=== PATIENT | female | born 1975 | race Two or more races ===

== ENCOUNTER 2017-08-23 11:18 | Inpatient (IN) | payer BC, OTHER ==
[2017-08-23 11:26] VITALS: BMI 26.2
[2017-08-23] MEDS ORDERED: ACETAMINOPHEN 1000 MG/100 ML VIAL (NON FORMULARY) IVPB ONE (12:09)
[2017-08-23] MEDS ORDERED: SODIUM CHLORIDE 1,000 ML IV STA (12:09)
[2017-08-23] MEDS ORDERED: ALBUTEROL SO4 2.5/IPRATROPIUM 0.5 INH SOL 3 ML VIAL.NEB. NEB ONE (12:09)
--- NOTE | 2017-08-23 12:12 | PDOC ---
History of Present Illness <Susan Loweian - Last Filed: 08/23/17 18:39> - History of Present Illness Initial Comments: 08/23/17 12:06 42 F with no PMH presents to ED with 1 week of fevers, cough, and abdominal pain. Pt states that she had a tummy tuck in [place] 3 months ago. She had been doing well until last Tuesday, when she developed abdominal pain and fever. Pt also reports a nonproductive cough that developed simultaneously. Pt states that she went to her PMD, who prescribed doxycycline, which she has been taking for about 6 days now. Pt reports initial improvement in her symptoms after starting doxy. However, yesterday, pt states her fevers returned with Tmax 102. She states her cough and abdominal pain also returned. Pt reports pain in the middle of her abdomen. She denies any drainage from the surgical wounds, which have healed well. Pt also complains of pleuritic chest pain and SOB 2/2 cough. Denies any leg swelling or calf pain. <Justino Stevenson - Last Filed: 08/23/17 19:11> - General Chief Complaint: Respiratory Stated Complaint: CHEST PAIN Time Seen by Provider: 08/23/17 11:32 Past History <Susan Loweian - Last Filed: 08/23/17 18:39> - Past Medical History COPD: No - Suicide/Smoking/Psychosocial Hx Smoking History: Never smoked <GrahamJustino - Last Filed: 08/23/17 19:11> - Past Medical History Allergies/Adverse Reactions: Allergies Allergy/AdvReac Type Severity Reaction Status Date / Time No Known Allergies Allergy Verified 08/23/17 13:40 Review of Systems - Review of Systems Comments:: 08/23/17 12:09 "GENERAL/CONSTITUTIONAL: + fever and chills. No weakness. HEAD, EYES, EARS, NOSE AND THROAT: No change in vision. No ear pain or discharge. No sore throat. CARDIOVASCULAR: + chest pain and shortness of breath. RESPIRATORY: + cough, no wheezing, or hemoptysis. GASTROINTESTINAL: + abdominal pain, No nausea, vomiting, diarrhea or constipation. GENITOURINARY: No dysuria, frequency, or change in urination. MUSCULOSKELETAL: No joint or muscle swelling or pain. No neck or back pain. SKIN: No rash NEUROLOGIC: No headache, vertigo, loss of consciousness, or change in strength/ sensation. ENDOCRINE: No increased thirst. No abnormal weight change. HEMATOLOGIC/LYMPHATIC: No anemia, easy bleeding, or history of blood clots. ALLERGIC/IMMUNOLOGIC: No hives or skin allergy. " <Justino Stevenson - Last Filed: 08/23/17 19:11> *Physical Exam - Vital Signs Last Vital Signs Temp Pulse Resp BP Pulse Ox 99.5 F 110 H 20 123/68 100 08/23/17 11:23 08/23/17 11:23 08/23/17 11:23 08/23/17 11:23 08/23/17 11:23 <Beni Lowe - Last Filed: 08/23/17 18:39> - Vital Signs Last Vital Signs Temp Pulse Resp BP Pulse Ox 99.5 F 110 H 20 123/68 100 08/23/17 11:23 08/23/17 11:23 08/23/17 11:23 08/23/17 11:23 08/23/17 11:23 - Physical Exam Comments: 08/23/17 12:12 "GENERAL: Awake, alert, and fully oriented, in no acute distress. HEAD: No signs of trauma EYES: PERRLA, EOMI, sclera anicteric, conjunctiva clear ENT: Auricles normal inspection, hearing grossly normal, nares patent, oropharynx clear without exudates. Moist mucosa NECK: Nontender, no stepoffs, Normal ROM, supple, no lymphadenopathy, JVD, or masses LUNGS: +Slightly prolonged expiratory phase, Breath sounds equal, clear to auscultation bilaterally. No wheezes, and no crackles HEART: Regular rate and rhythm, normal S1 and S2, no murmurs, rubs or gallops ABDOMEN: + tenderness periumbilical region with + induration, no fluctuance, no drainage from surgical incisions, No guarding, no rebound. No masses EXTREMITIES: Normal range of motion, no edema. No clubbing or cyanosis. No cords, erythema, or tenderness NEUROLOGICAL: Cranial nerves II through XII intact. 5/5 strength and sensation in all extremities, Normal speech, normal gait, normal cerebellar function SKIN: Warm, Dry, normal turgor, no rashes or lesions noted. " <Justino Stevenson - Last Filed: 08/23/17 19:11> ED Treatment Course - LABORATORY CBC & Chemistry Diagram: 08/23/17 12:53 08/23/17 12:53 - ADDITIONAL ORDERS Additional order review: Laboratory Results 08/23/17 08/23/17 08/23/17 13:18 13:18 12:53 D-Dimer Sodium Potassium Chloride Carbon Dioxide Anion Gap BUN Creatinine Creat Clearance w eGFR Random Glucose Lactic Acid Calcium Total Bilirubin AST ALT Alkaline Phosphatase Creatine Kinase Cancelled Troponin I Cancelled Total Protein Albumin Urine Color Yellow Urine Appearance Clear Urine pH 6.0 Ur Specific [place] 1.024 Urine Protein Negative Urine Glucose (UA) Negative Urine Ketones Negative Urine Blood 2+ H Urine Nitrite Negative Urine Bilirubin Negative Urine Urobilinogen Negative Ur Leukocyte Esterase Negative Urine WBC (Auto) 1 Urine RBC (Auto) 14 Ur Epithelial Cells Rare Urine Bacteria Rare Urine Mucus Few Urine HCG, Qual Negative 08/23/17 08/23/17 08/23/17 12:53 12:53 12:35 D-Dimer 202 H Sodium 137 Potassium 3.5 Chloride 100 Carbon Dioxide 29 Anion Gap 8 BUN 16 Creatinine 0.6 Creat Clearance w eGFR > 60 Random Glucose 81 Lactic Acid 1.2 Calcium 8.7 Total Bilirubin 0.4 AST 12 L ALT 25 Alkaline Phosphatase 66 Creatine Kinase 58 Troponin I < 0.02 Total Protein 6.9 Albumin 3.0 L Urine Color Urine Appearance Urine pH Ur Specific [place] Urine Protein Urine Glucose (UA) Urine Ketones Urine Blood Urine Nitrite Urine Bilirubin Urine Urobilinogen Ur Leukocyte Esterase Urine WBC (Auto) Urine RBC (Auto) Ur Epithelial Cells Urine Bacteria Urine Mucus Urine HCG, Qual 08/23/17 12:53 RBC 4.43 MCV 79.1 L MCHC 32.0 RDW 15.3 MPV 8.5 Neutrophils % 82.0 Lymphocytes % 8.5 Monocytes % 8.7 Eosinophils % 0.1 Basophils % 0.7 - Medications Given in the ED: ED Medications Discontinued Medications Generic Name Dose Route Start Last Admin Trade Name Freq PRN Reason Stop Dose Admin Acetaminophen 1,000 mg 08/23/17 12:09 08/23/17 12:54 Ofirmev Injection - IVPB 08/23/17 12:10 1,000 mg ONCE ONE Administration Albuterol/Ipratropium 1 amp 08/23/17 12:09 08/23/17 12:53 Duoneb - NEB 08/23/17 12:10 1 amp ONCE ONE Administration Sodium Chloride 1,000 mls @ 1,000 mls/hr 08/23/17 12:09 08/23/17 13:52 Normal Saline - IV 08/23/17 13:08 1,000 mls/hr ASDIR STA Administration <Beni Lowe - Last Filed: 08/23/17 18:39> - LABORATORY CBC & Chemistry Diagram: 08/23/17 12:53 08/23/17 12:53 - RADIOLOGY Radiology Studies Ordered: Category Date Time Status ABDOMEN & PELVIS CT WITH CONTR [CT] Stat CT Scan 08/23/17 12:05 Ordered CHEST PA & LAT [RAD] Stat Radiology 08/23/17 12:05 Ordered <GrahamJustino - Last Filed: 08/23/17 19:11> Medical Decision Making - Medical Decision Making 08/23/17 18:16 Call placed to shipping lead person surgery service at . Answering service advised Dr. Ross is shipping lead person and will be returning the page. Case discussed with Dr. Ross. Call placed to shipping lead person Plastic Surgery Dr. Smith at [phone]. Pending return phone call. <Beni Lowe - Last Filed: 08/23/17 18:39> - Medical Decision Making 08/23/17 12:13 42 F with fevers, cough, abdominal pain. Exam notable for induration of skin in periumbilical region, concerning for possible post-op soft tissue infection. Pt also with cough + CP/SOB. Will r/o PNA but also need to consider PE given recent surgery. - Labs, trop, ddimer - UA, cultures - CXR - CT abdomen/pelvis to r/o post-op infection - Likely CTA chest to r/o PE - IVF, tylenol 08/23/17 18:12 Labs notable for leukocytosis. Ddimer elevated CTA negative for PE. CTAP shows rim enhancing collection, concerning for abscess. Plastic Surgery Dr. Smith consulted. Pt started on IV vancomycin Will admit for IV abx and plastic surgery vs IR consultation 08/23/17 19:[address] Couch consulted, recommending addition of zosyn. Pt admitted to hospitalist. <Justino Stevenson - Last Filed: 08/23/17 19:11> *DC/Admit/Observation/Transfer - Attestations Scribe Attestion: 08/23/17 18:18 Documentation prepared by Beni Lowe, acting as medical dermatologist for Justino Stevenson MD. <Beni Lowe - Last Filed: 08/23/17 18:39> - Discharge Dispostion Decision to Admit order: Yes - Attestations Physician Attestion: 08/23/17 19:00 I, Dr. Justino Stevenson MD, attest that this document has been prepared under my direction and personally reviewed by me in its entirety. I further attest, that it accurately reflects all work, treatment, procedures and medical decision -making performed by me. <Justino Stevenson - Last Filed: 08/23/17 19:11> Diagnosis at time of Disposition: Post op infection - Referrals Referrals: Tao Jarrell MD [Primary Care Provider] - - Patient Instructions - Post Discharge Activity
[2017-08-23 13:05] LABS: BASO % 0.7 % (0-2.0); EOS % 0.1 % (0-4.5); HEMOGLOBIN 11.2 GM/dL (10.7-15.3); LYMPH % 8.5 % (8-40); MCH 25.3 pg (25.7-33.7); MEAN CELL VOLUME 79.1 fl (80-96); MEAN PLT VOLUME 8.5 fl (7.5-11.1); MONO % 8.7 % (3.8-10.2); PLATELET COUNT 395 K/MM3 (134-434); RBC 4.43 M/mm3 (3.60-5.2); RDW 15.3 % (11.6-15.6); WHITE BLOOD COUNT 19.4 K/mm3 (4.0-10.0)
[2017-08-23 13:27] LABS: ALK PHOS 66 U/L (45-117); ANION GAP 8 (8-16); BILIRUBIN,TOTAL 0.4 mg/dL (0.2-1.0); BLOOD UREA NITROGEN 16 mg/dL (7-18); CALCIUM 8.7 mg/dL (8.5-10.1); CHLORIDE 100 mmol/L (98-107); CO2 29 mmol/L (21-32); CREATININE 0.6 mg/dL (0.55-1.02); GLUCOSE,RANDOM 81 mg/dL (74-106); POTASSIUM 3.5 mmol/L (3.5-5.1); SGOT/AST 12 U/L (15-37); SGPT/ALT 25 U/L (12-78); SODIUM 137 mmol/L (136-145); TOT PROT 6.9 g/dl (6.4-8.2)
[2017-08-23 13:32] LABS: URINE APPEARANCE CLEAR; URINE BILIRUBIN NEGATIVE (<2.0 mg/dL); URINE COLOR YELLOW; URINE GLUCOSE (UA) NEGATIVE (NEGATIVE); URINE KETONE NEGATIVE (NEGATIVE); URINE LEUK ESTERASE NEGATIVE (NEGATIVE); URINE NITRITE NEGATIVE (NEGATIVE); URINE PROTEIN NEGATIVE (NEGATIVE); URINE UROBILINOGEN NEGATIVE mg/dL (0.2-1.0)
[2017-08-23 14:00] LABS: EPI CELLS RARE /HPF (FEW); URINE BACTERIA RARE /hpf (NONE SEEN); URINE MUCUS FEW
[2017-08-23] MEDS ORDERED: morphine CARPU-JECT 4 MG/1 ML DISP.SYRIN IVPUSH ONE (18:19)
[2017-08-23] MEDS ORDERED: VANCOMYCIN 1,000 MG in DEXTROSE 5%-WATER - 250 ML IVPB ONE (18:21)
[2017-08-23] MEDS ORDERED: PIPERACILLIN/TAZOB 4.5 GM 4.5 GM/100 ML BAG IVPB ONE ×2 (19:10→20:44)
[2017-08-23] MEDS ORDERED: morphine SULFATE 4 MG/ML VIAL ONE (19:16)
[2017-08-23] MEDS ORDERED: VANCOMYCIN 1 GRAM (PRE-DOCKED) 1,000 MG/250 ML BAG IVPB ONE (19:16)
--- NOTE | 2017-08-23 19:17 | CON.ID ---
Consult Consult Specialty:: infectious disease Referred by:: Reason for Consultation:: abd abscess - History of Present Illness Chief Complaint: abd pain fever History of Present Illness: 42 F with no PMH presents to ED with 1 week of fevers, cough, and abdominal pain. Pt states that she had a tummy tuck in [place] 3 months ago. She had been doing well until last Tuesday, when she developed abdominal pain and fever. Pt also reports a nonproductive cough that developed simultaneously. Patient was started on doxy by the pcp patient was initially feeling better,then she re started spiking the temp and says all her symptoms returned and the patient came to the hospital also patient has developed keloid on the scar - History Source History Provided By: Patient Limitations to Obtaining History: No Limitations - Smoking History Smoking history: Never smoked Home Medications - Allergies Allergies/Adverse Reactions: Allergies Allergy/AdvReac Type Severity Reaction Status Date / Time No Known Allergies Allergy Verified 08/23/17 13:40 Review of Systems - Review of Systems Constitutional: reports: Chills, Fever HENT: reports: No Symptoms Neck: reports: No Symptoms Cardiovascular: reports: No Symptoms Respiratory: reports: Cough, SOB Gastrointestinal: reports: Abdominal Pain Genitourinary: reports: No Symptoms Musculoskeletal: reports: No Symptoms Integumentary: reports: No Symptoms Neurological: reports: No Symptoms Endocrine: reports: No Symptoms Hematology/Lymphatic: reports: No Symptoms Psychiatric: reports: No Symptoms Physical Exam Vital Signs: Vital Signs Temperature 99.5 F 08/23/17 11:23 Pulse Rate 110 H 08/23/17 11:23 Respiratory Rate 20 08/23/17 11:23 Blood Pressure 123/68 08/23/17 11:23 O2 Sat by Pulse Oximetry (%) 100 08/23/17 11:23 Constitutional: Yes: Calm, Mild Distress Cardiovascular: Yes: Regular Rate and Rhythm Respiratory: Yes: Regular, CTA Bilaterally Gastrointestinal: Yes: Normal Bowel Sounds, Soft, Tenderness Musculoskeletal: Yes: WNL Extremities: Yes: WNL Neurological: Yes: Alert, Oriented Psychiatric: Yes: Alert, Oriented Labs: CBC, BMP 08/23/17 12:53 08/23/17 12:53 Imaging - Results Chest X-ray: Report Reviewed, Image Reviewed Cat Scan: Report Reviewed, Image Reviewed Assessment/Plan 42 yo woman with pmh of gastric band placement and prior tummy tuck surgery (3 months ago in [place]), who presents to [facility] with one week of abdominal pain, fevers and [employer] cough. Ab/pelvis CT notable for results as above. after looking at the results patient needs drainage.the only issues is that how to proceed IR vs open abd abscess fever cough pain plan bartlett start patient on abx will need drainage then will decide further mgmt monitor for fevers rest as per the team
--- NOTE | 2017-08-23 20:15 | PN ---
Teaching Attending Note Name of Resident: Tyler Chance ATTENDING PHYSICIAN STATEMENT I saw and evaluated the patient. I reviewed the resident's note and discussed the case with the resident. I agree with the resident's findings and plan as documented. SUBJECTIVE: Patient is a 42 year old woman with past history of gastric band surgery and recent tummy tuck who presents to ED with 1 week of fevers, cough, and abdominal pain. She had a tummy tuck in [place] 3 months ago. She had been doing well until last Tuesday, when she developed abdominal pain and fever. She has a nonproductive cough that developed simultaneously and her PCP prescribed doxycycline, which she has been taking for about 6 days. Yesterday her fevers returned with Tmax 102, cough and abdominal pain. She denies any drainage from the surgical wounds, which have healed well. She also has pleuritic chest pain and SOB. OBJECTIVE: Alert and in no acute distress Vital Signs Period Temp Pulse Resp BP Sys/Horowitz Pulse Ox Last 24 Hr 99.5 F 110 20 123/68 100 HEENT: No Jaundice, eye redness or discharge, PERRLA, EOMI. Normocephalic, atraumatic. External ears are normal and hearing is grossly intact. No nasal discharge. Neck: Supple, nontender. No palpable adenopathy or thyromegaly. No JVD Chest: Good effort. Clear to auscultation and percussion. Heart: Regular. No S3, rub or murmur Abdomen: Area of induration above the umblicus. Tender. Soft abdomen; no HSM. No rebound or guarding. Normoactive bowel sounds. Ext: Peripheral pulses intact. No leg edema. Skin: Warm and dry. No petechiae, rash or ecchymosis. Neuro: Alert. Oriented x3. CN 2-12 grossly intact. Sensation grossly intact in all four extremities and DTR are symmetric. Current Medications Generic Name Dose Route Start Last Admin Trade Name Freq PRN Reason Stop Dose Admin Piperacillin Sod/Tazobactam 50 mls @ 100 mls/hr 08/24/17 02:00 Sod 3.375 gm/ Dextrose IVPB Q8H-IV STEPHANI Protocol Abnormal Lab Results 08/23/17 08/23/17 08/23/17 12:53 12:53 12:53 WBC 19.4 H MCV 79.1 L MCH 25.3 L D-Dimer 2021 H AST 12 L Albumin 3.0 L Urine Blood 08/23/17 13:18 WBC MCV MCH D-Dimer AST Albumin Urine Blood 2+ H Current Medications Generic Name Dose Route Start Last Admin Trade Name Freq PRN Reason Stop Dose Admin Acetaminophen 650 mg 08/23/17 21:14 Tylenol - PO Q4H PRN PAIN LEVEL 1-5 Heparin Sodium (Porcine) 5,000 unit 08/24/17 06:00 Heparin - SQ TID STEPHANI Piperacillin Sod/Tazobactam 50 mls @ 100 mls/hr 08/24/17 02:00 Sod 3.375 gm/ Dextrose IVPB Q8H-IV STEPHANI Protocol Morphine Sulfate 2 mg 08/23/17 21:14 Morphine Sulfate IVPUSH Q4H PRN PAIN LEVEL 6-10 ASSESSMENT AND PLAN: 1. Abdominal wall abscess - This is likely a complication of her recent tummy tuck. CT shows another intraabdominal collection. Will refer to IR and General surgery for drainage to confirm abscess and tailor antibiotics coverage after culture. Conitnue IV vancomycin and zosyn. ID consult noted. 2. SOB and Chestpain - D-dimer was elevated but CTPA ruled out pulmonary embolism and CXR showed no infiltrate. 3. Low MCV anemia - Etiology unclear. Will do basic anemia workup with iron studies and serial stool guaiac. 4. Hematuria - Etiology unclear. Will repeat UA. 4. DVT prophylaxis - Heparin 5000u sq tid. 5. Advance directives - Full code
--- NOTE | 2017-08-23 20:44 | HP ---
CHIEF COMPLAINT: Abdominal pain, fevers PCP: Dr Jarrell HISTORY OF PRESENT ILLNESS: 42 yo woman with pmh of gastric band placement and prior tummy tuck surgery (3 months ago in [place]), who presents to [facility] with one week of abdominal pain, fevers and [employer] cough. Pt states she received a tummy tuck in [place] approximately 3 months ago, most recently seen for post-op f/u two months ago, with no interim post-op complications until this past week. Pt states she noted the onset of sharp mid-abdominal pain with accompanying non-productive cough and anterior chest pain/tightness worsened by cough and deep breathing. Pt states she was seen by her PCP Dr. Jarrell and was prescribed PO doxycycline, which she has been taking for the last 6 days. Pt states her symptoms initially completely resolved, however yesterday she noted a fever of 102 and return of cough and abdominal pain. Pt denies any drainage from surgical site, which has been healing well. Denies PEREZ, vision changes, chills, n/v, diarrhea, constipation, back pain, FNDS , rashes, changes in appetite, LE edema. ER course was notable for: (1)Vanc/zosyn x1, morphine, 1L NS, duonebs x1 (2)WBC 19.4 (3)CT abdomen/chest Recent Travel: Traveled to [place] 3 months ago PAST MEDICAL HISTORY: None PAST SURGICAL HISTORY: "tummy tuck" 3 months ago Gastric band placement Social History: Smoking: Denies Alcohol: Denies Drugs: Denies Family History: [place] Allergies No Known Allergies Allergy (Verified 08/23/17 13:40) HOME MEDICATIONS: REVIEW OF SYSTEMS CONSTITUTIONAL: +fever Absent: chills, diaphoresis, generalized weakness, malaise, loss of appetite, weight change HEENT: Absent: rhinorrhea, nasal congestion, throat pain, throat swelling, difficulty swallowing, mouth swelling, ear pain, eye pain, visual changes CARDIOVASCULAR: +chest pain Absent: syncope, palpitations, irregular heart rate, lightheadedness, peripheral edema RESPIRATORY: + cough Absent: shortness of breath, dyspnea with exertion, orthopnea, wheezing, stridor, hemoptysis GASTROINTESTINAL: +abdominal pain Absent: abdominal distension, nausea, vomiting, diarrhea, constipation, melena , hematochezia GENITOURINARY: Absent: dysuria, frequency, urgency, hesitancy, hematuria, flank pain, genital pain MUSCULOSKELETAL: Absent: myalgia, arthralgia, joint swelling, back pain, neck pain SKIN: Absent: rash, itching, pallor HEMATOLOGIC/IMMUNOLOGIC: Absent: easy bleeding, easy bruising, lymphadenopathy, frequent infections ENDOCRINE: Absent: unexplained weight gain, unexplained weight loss, heat intolerance, cold intolerance NEUROLOGIC: Absent: headache, focal weakness or paresthesias, dizziness, unsteady gait, seizure, mental status changes, bladder or bowel incontinence PSYCHIATRIC: Absent: anxiety, depression, suicidal or homicidal ideation, hallucinations. PHYSICAL EXAMINATION Vital Signs - 24 hr 08/23/17 11:23 Temperature 99.5 F Pulse Rate 110 H Respiratory 20 Rate Blood Pressure 123/68 O2 Sat by Pulse 100 Oximetry (%) GENERAL: Middle aged woman, Awake, alert, and fully oriented, in no acute distress. HEAD: Normal with no signs of trauma. EYES: Pupils equal, round and reactive to light, extraocular movements intact, sclera anicteric, conjunctiva clear. No lid lag. EARS, NOSE, THROAT: Ears normal, nares patent, oropharynx clear without exudates. Moist mucous membranes. NECK: Normal range of motion, supple without lymphadenopathy, JVD, or masses. LUNGS: Breath sounds equal, clear to auscultation bilaterally. No wheezes, and no crackles. No accessory muscle use. HEART: Regular rate and rhythm, normal S1 and S2 without murmur, rub or gallop. ABDOMEN: TTP in epigastric region with 5cm diameter area of induration in supra- umbilical region with no noted fluctuance, erythema or drainage. Abdomen warm to touch. Soft, not distended, normoactive bowel sounds, no rebound, no masses. No hepatomegaly or splenomegaly. MUSCULOSKELETAL: Normal range of motion at all joints. No bony deformities or tenderness. No CVA tenderness. UPPER EXTREMITIES: 2+ pulses, warm, well-perfused. No cyanosis. No clubbing. No peripheral edema. LOWER EXTREMITIES: 2+ DP, PT pulses, warm, well-perfused. No calf tenderness. No peripheral edema. NEUROLOGICAL: Cranial nerves II-XII intact. Normal speech. Gait not evaluated. PSYCHIATRIC: Cooperative. Good eye contact. Appropriate mood and affect. SKIN: Warm, dry, normal turgor, no rashes or lesions noted, normal capillary refill. Laboratory Results - last 24 hr CBC, BMP 08/23/17 12:53 08/23/17 12:53 08/23/17 08/23/17 08/23/17 12:35 12:53 12:53 WBC 19.4 H RBC 4.43 Hgb 11.2 Hct 35.0 MCV 79.1 L MCH 25.3 L MCHC 32.0 RDW 15.3 Plt Count 395 MPV 8.5 Absolute Neuts (auto) 15.9 Neutrophils % 82.0 Lymphocytes % 8.5 Monocytes % 8.7 Eosinophils % 0.1 Basophils % 0.7 Nucleated RBC % 0 D-Dimer Sodium 137 Potassium 3.5 Chloride 100 Carbon Dioxide 29 Anion Gap 8 BUN 16 Creatinine 0.6 Creat Clearance w eGFR > 60 Random Glucose 81 Lactic Acid 1.2 Calcium 8.7 Total Bilirubin 0.4 AST 12 L ALT 25 Alkaline Phosphatase 66 Creatine Kinase 58 Troponin I < 0.02 Total Protein 6.9 Albumin 3.0 L Urine Color Urine Appearance Urine pH Ur Specific [place] Urine Protein Urine Glucose (UA) Urine Ketones Urine Blood Urine Nitrite Urine Bilirubin Urine Urobilinogen Ur Leukocyte Esterase Urine WBC (Auto) Urine RBC (Auto) Ur Epithelial Cells Urine Bacteria Urine Mucus Urine HCG, Qual 08/23/17 08/23/17 08/23/17 12:53 12:53 13:18 WBC RBC Hgb Hct MCV MCH MCHC RDW Plt Count MPV Absolute Neuts (auto) Neutrophils % Lymphocytes % Monocytes % Eosinophils % Basophils % Nucleated RBC % D-Dimer 2022 H Sodium Potassium Chloride Carbon Dioxide Anion Gap BUN Creatinine Creat Clearance w eGFR Random Glucose Lactic Acid Calcium Total Bilirubin AST ALT Alkaline Phosphatase Creatine Kinase Cancelled Troponin I Cancelled Total Protein Albumin Urine Color Yellow Urine Appearance Clear Urine pH 6.0 Ur Specific [place] 1.024 Urine Protein Negative Urine Glucose (UA) Negative Urine Ketones Negative Urine Blood 2+ H Urine Nitrite Negative Urine Bilirubin Negative Urine Urobilinogen Negative Ur Leukocyte Esterase Negative Urine WBC (Auto) 1 Urine RBC (Auto) 14 Ur Epithelial Cells Rare Urine Bacteria Rare Urine Mucus Few Urine HCG, Qual 08/23/17 13:18 WBC RBC Hgb Hct MCV MCH MCHC RDW Plt Count MPV Absolute Neuts (auto) Neutrophils % Lymphocytes % Monocytes % Eosinophils % Basophils % Nucleated RBC % D-Dimer Sodium Potassium Chloride Carbon Dioxide Anion Gap BUN Creatinine Creat Clearance w eGFR Random Glucose Lactic Acid Calcium Total Bilirubin AST ALT Alkaline Phosphatase Creatine Kinase Troponin I Total Protein Albumin Urine Color Urine Appearance Urine pH Ur Specific [place] Urine Protein Urine Glucose (UA) Urine Ketones Urine Blood Urine Nitrite Urine Bilirubin Urine Urobilinogen Ur Leukocyte Esterase Urine WBC (Auto) Urine RBC (Auto) Ur Epithelial Cells Urine Bacteria Urine Mucus Urine HCG, Qual Negative Urine culture sent CXR - Impression : No acute chest pathology. Left upper quadrant lap band device. CT chest - IMPRESSION: No CT evidence of pulmonary embolism. Mild bilateral lower lung field discoid atelectasis. Status post laparoscopic gastric banding. There is mild air-filled distention of the thoracic esophagus - ? clinical significance. A subtle 1.1 cm hypodense left hepatic focus is seen. Minimal to mild splenomegaly. CT abdomen - Impression: A nonspecific lobulated subcutaneous rim-enhancing fluid collection is seen within the epigastrium centered along the midline - ? abscess, seroma, infected seroma. A short segment of laparoscopic band tubing is seen traversing the inferior aspect of this subcutaneous fluid collection. A 1.3 cm rim-enhancing hypodense left hepatic focus is noted - ? abscess versus neoplastic disease. There also appears to be an additional similar 1.5 cm rim nonspecific rim-enhancing focus interposed between the gastric body, gastric band and left hepatic lobe - ? abscess, postsurgical collection. There appears to be soft tissue stranding/edema interposed between the gastric body and pancreatic body - due to recent surgery and/or representing infection/ inflammation. ASSESSMENT/PLAN: 42 yo woman with pmh of gastric band placement and prior tummy tuck surgery (3 months ago in [place]), who presents to [facility] with one week of abdominal pain, fevers and [employer] cough. Ab/pelvis CT notable for results as above. Will require IR drainage of fluid in AM for sample #Abdominal pain - CT results as noted above - Plastic surgery consulted - ID consulted - Vanc/zosyn for abx coverage - Tylenol, morphine for pain control - Will require IR-guided drainage in AM for fluid sample - Consider general surgical consult for intra-abdominal fluid collection - trend fever, WBC count - Vitals q4h - f/u pending cultures #Leukocystosis - 19.4 on admission; UA negative; likely secondary to fluid collection (possible abscess) - ABx per ID. Vanc/zosyn given in ED - trend wbc count PPX HSQ FEN PO hydration Daily lytes Regular diet Plan discussed with attending, Dr. Charmaine Chance, PGY1 Visit type - Emergency Visit Emergency Visit: Yes ED Registration Date: 08/23/17 Care time: The patient presented to the Emergency Department on the above date and was hospitalized for further evaluation of their emergent condition. - New Patient This patient is new to me today: Yes Date on this admission: 08/25/17 - Critical Care Critical Care patient: No Hospitalist Screening - Colonoscopy Questionnaire Colonoscopy Questionnaire: Colonoscopy Questionnaire - Patient: 50 - 75 years old and never had a screening colonoscopy: Unknown History of colon or rectal polyps, or CA: Unknown History of IBD, Crohn's disease or UC: Unknown History of abdominal radiation therapy as a child: Unknown - Relative: 1 with colon or rectal CA, or polyps at age 60 or younger: Unknown Colon or rectal CA diagnosed at age 45 or younger: Unknown Multiple relatives with colon or rectal CA: Unknown - Outcome: Screening Result: Negative Screen
[2017-08-23] MEDS: ACETAMINOPHEN 325 MG TABLET (FP) PO PRN (23:35)
[2017-08-24] MEDS ORDERED: PIPERACILLIN/TAZOBACTAM 3.375 GM VIAL IVPB ONE ×3 (04:05→17:44)
[2017-08-24] MEDS ORDERED: DEXTROSE 5%-WATER - 50 ML IVPB ONE ×3 (04:06→17:45)
[2017-08-24] MEDS: PIPERACILLIN/TAZOB 3.375 GM 3.375 GM in DEXTROSE 5%-WATER - 50 ML IVPB SCH ×3 (04:43→17:52)
[2017-08-24] MEDS: HEPARIN NA (PORCINE) 5,000 UNITS/ML 1ML VIAL SQ SCH ×3 (05:17→21:25)
[2017-08-24 07:49] LABS: BASO % 0.3 % (0-2.0); EOS % 0.4 % (0-4.5); HEMATOCRIT 30.8 % (32.4-45.2); HEMOGLOBIN 10.2 GM/dL (10.7-15.3); LYMPH % 14.1 % (8-40); MCH 26.2 pg (25.7-33.7); MCHC 33.1 g/dl (32.0-36.0); MEAN CELL VOLUME 79.3 fl (80-96); MEAN PLT VOLUME 8.6 fl (7.5-11.1); MONO % 9.5 % (3.8-10.2); NEUT % 75.7 % (42.8-82.8); PLATELET COUNT 304 K/MM3 (134-434); RBC 3.88 M/mm3 (3.60-5.2); WHITE BLOOD COUNT 12.8 K/mm3 (4.0-10.0)
[2017-08-24 07:58] LABS: INR 1.32 (0.82-1.09); PROTHROMBIN TIME (PATIENT) 14.9 SEC (9.7-13.0)
[2017-08-24 08:01] LABS: ACTIVATED PTT 31.6 SECONDS (25.2-36.5)
[2017-08-24 08:09] LABS: ALBUMIN 2.6 g/dl (3.4-5.0); ANION GAP 6 (8-16); BLOOD UREA NITROGEN 11 mg/dL (7-18); CALCIUM 8.2 mg/dL (8.5-10.1); CHLORIDE 102 mmol/L (98-107); CO2 29 mmol/L (21-32); CREATININE 0.6 mg/dL (0.55-1.02); GLUCOSE,RANDOM 82 mg/dL (74-106); MAGNESIUM 1.8 mg/dL (1.8-2.4); PHOSPHOROUS 3.2 mg/dL (2.5-4.9); POTASSIUM 3.3 mmol/L (3.5-5.1); SGPT/ALT 19 U/L (12-78); SODIUM 137 mmol/L (136-145)
[2017-08-24 08:12] LABS: ALK PHOS 57 U/L (45-117); BILIRUBIN,TOTAL 0.5 mg/dL (0.2-1.0); SGOT/AST 11 U/L (15-37)
[2017-08-24] MEDS: morphine SULFATE 4 MG/ML VIAL IVPUSH PRN (08:41)
[2017-08-24 10:00] LABS: URINE APPEARANCE CLEAR; URINE BILIRUBIN NEGATIVE (<2.0 mg/dL); URINE COLOR YELLOW; URINE GLUCOSE (UA) NEGATIVE (NEGATIVE); URINE KETONE TRACE (NEGATIVE); URINE LEUK ESTERASE NEGATIVE (NEGATIVE); URINE NITRITE NEGATIVE (NEGATIVE); URINE PROTEIN NEGATIVE (NEGATIVE); URINE UROBILINOGEN NEGATIVE mg/dL (0.2-1.0)
[2017-08-24 10:04] LABS: EPI CELLS RARE /HPF (FEW); URINE MUCUS RARE
--- NOTE | 2017-08-24 10:34 | PN ---
Physical Exam: SUBJECTIVE: Patient seen and examined at the bedside. Abdominal pain controlled with morphine. OBJECTIVE: D Dimer elevated, negative for DVT For IR today Vital Signs Period Temp Pulse Resp BP Sys/Horowitz Pulse Ox Last 24 Hr 98.1 F-100 F 78-110 14-20 110-128/68-77 98-100 GENERAL: The patient is awake, alert, and fully oriented, in no acute distress. HEAD: Normal with no signs of trauma. EYES: PERRL, extraocular movements intact, sclera anicteric, conjunctiva clear. No ptosis. ENT: Ears normal, nares patent, oropharynx clear without exudates, moist mucous membranes. NECK: Trachea midline, full range of motion, supple. LUNGS: Breath sounds equal, clear to auscultation bilaterally, no wheezes, no crackles, no accessory muscle use. HEART: Regular rate and rhythm ABDOMEN: Soft, nontender, nondistended, normoactive bowel sounds, mild abd. pain , IR today for drainage of abdominal abscess EXTREMITIES: 2+ pulses, warm, well-perfused, no edema. NEUROLOGICAL: Cranial nerves II through XII grossly intact. Normal speech, gait not observed. PSYCH: Normal mood, normal affect. Laboratory Results - last 24 hr 08/23/17 08/23/17 08/23/17 12:35 12:53 12:53 WBC 19.4 H RBC 4.43 Hgb 11.2 Hct 35.0 MCV 79.1 L MCH 25.3 L MCHC 32.0 RDW 15.3 Plt Count 395 MPV 8.5 Absolute Neuts (auto) 15.9 Neutrophils % 82.0 Lymphocytes % 8.5 Monocytes % 8.7 Eosinophils % 0.1 Basophils % 0.7 Nucleated RBC % 0 PT with INR INR PTT (Actin FS) D-Dimer Sodium 137 Potassium 3.5 Chloride 100 Carbon Dioxide 29 Anion Gap 8 BUN 16 Creatinine 0.6 Creat Clearance w eGFR > 60 Random Glucose 81 Lactic Acid 1.2 Calcium 8.7 Phosphorus Magnesium Total Bilirubin 0.4 AST 12 L ALT 25 Alkaline Phosphatase 66 Creatine Kinase 58 Troponin I < 0.02 Total Protein 6.9 Albumin 3.0 L Urine Color Urine Appearance Urine pH Ur Specific [place] Urine Protein Urine Glucose (UA) Urine Ketones Urine Blood Urine Nitrite Urine Bilirubin Urine Urobilinogen Ur Leukocyte Esterase Urine WBC (Auto) Urine RBC (Auto) Ur Epithelial Cells Urine Bacteria Urine Mucus Urine HCG, Qual 08/23/17 08/23/17 08/23/17 12:53 12:53 13:18 WBC RBC Hgb Hct MCV MCH MCHC RDW Plt Count MPV Absolute Neuts (auto) Neutrophils % Lymphocytes % Monocytes % Eosinophils % Basophils % Nucleated RBC % PT with INR INR PTT (Actin FS) D-Dimer 2022 H Sodium Potassium Chloride Carbon Dioxide Anion Gap BUN Creatinine Creat Clearance w eGFR Random Glucose Lactic Acid Calcium Phosphorus Magnesium Total Bilirubin AST ALT Alkaline Phosphatase Creatine Kinase Cancelled Troponin I Cancelled Total Protein Albumin Urine Color Yellow Urine Appearance Clear Urine pH 6.0 Ur Specific [place] 1.024 Urine Protein Negative Urine Glucose (UA) Negative Urine Ketones Negative Urine Blood 2+ H Urine Nitrite Negative Urine Bilirubin Negative Urine Urobilinogen Negative Ur Leukocyte Esterase Negative Urine WBC (Auto) 1 Urine RBC (Auto) 14 Ur Epithelial Cells Rare Urine Bacteria Rare Urine Mucus Few Urine HCG, Qual 08/23/17 08/24/17 08/24/17 13:18 07:00 07:00 WBC 12.8 H D RBC 3.88 Hgb 10.2 L Hct 30.8 L MCV 79.3 L MCH 26.2 MCHC 33.1 RDW 15.0 Plt Count 304 D MPV 8.6 Absolute Neuts (auto) 9.7 Neutrophils % 75.7 Lymphocytes % 14.1 D Monocytes % 9.5 Eosinophils % 0.4 D Basophils % 0.3 Nucleated RBC % 0 PT with INR 14.90 H INR 1.32 H PTT (Actin FS) 31.6 D-Dimer Sodium Potassium Chloride Carbon Dioxide Anion Gap BUN Creatinine Creat Clearance w eGFR Random Glucose Lactic Acid Calcium Phosphorus Magnesium Total Bilirubin AST ALT Alkaline Phosphatase Creatine Kinase Troponin I Total Protein Albumin Urine Color Urine Appearance Urine pH Ur Specific [place] Urine Protein Urine Glucose (UA) Urine Ketones Urine Blood Urine Nitrite Urine Bilirubin Urine Urobilinogen Ur Leukocyte Esterase Urine WBC (Auto) Urine RBC (Auto) Ur Epithelial Cells Urine Bacteria Urine Mucus Urine HCG, Qual Negative 08/24/17 08/24/17 07:00 09:30 WBC RBC Hgb Hct MCV MCH MCHC RDW Plt Count MPV Absolute Neuts (auto) Neutrophils % Lymphocytes % Monocytes % Eosinophils % Basophils % Nucleated RBC % PT with INR INR PTT (Actin FS) D-Dimer Sodium 137 Potassium 3.3 L Chloride 102 Carbon Dioxide 29 Anion Gap 6 L BUN 11 Creatinine 0.6 Creat Clearance w eGFR > 60 Random Glucose 82 Lactic Acid Calcium 8.2 L Phosphorus 3.2 Magnesium 1.8 Total Bilirubin 0.5 D AST 11 L ALT 19 Alkaline Phosphatase 57 Creatine Kinase Troponin I Total Protein 6.0 L Albumin 2.6 L Urine Color Yellow Urine Appearance Clear Urine pH 6.0 Ur Specific [place] 1.026 Urine Protein Negative Urine Glucose (UA) Negative Urine Ketones Trace H Urine Blood 1+ H Urine Nitrite Negative Urine Bilirubin Negative Urine Urobilinogen Negative Ur Leukocyte Esterase Negative Urine WBC (Auto) 1 Urine RBC (Auto) 23 Ur Epithelial Cells Rare Urine Bacteria Urine Mucus Rare Urine HCG, Qual Active Medications Generic Name Dose Route Start Last Admin Trade Name Freq PRN Reason Stop Dose Admin Acetaminophen 650 mg 08/23/17 21:14 08/23/17 23:35 Tylenol - PO 650 mg Q4H PRN Administration PAIN LEVEL 1-5 Heparin Sodium (Porcine) 5,000 unit 08/24/17 06:00 08/24/17 05:17 Heparin - SQ 5,000 unit TID STEPHANI Administration Piperacillin Sod/Tazobactam 50 mls @ 100 mls/hr 08/24/17 02:00 08/24/17 09:51 Sod 3.375 gm/ Dextrose IVPB 100 mls/hr Q8H-IV STEPHANI Administration Protocol Morphine Sulfate 2 mg 08/23/17 21:14 08/24/17 08:41 Morphine Sulfate IVPUSH 2 mg Q4H PRN Administration PAIN LEVEL 6-10 ASSESSMENT/PLAN: Patient is a 42 year old female with a past history of gastric band surgery and recent tummy tuck in [place] 3 months ago. She presents to the ED today with c/o of 1 week of fevers, cough, and abdominal pain. Patient reports that last Tuesday she developed abdominal pain and fever. She also reported and non productive cough. She was seen by her PCP and was given Doxycycline. However, she developed fevers in the 102 yesterday which prompted her ED visit. No drainage from her abdomen reported. Her D Dimer was elevated on admission, but ruled out for PE with a CTA. Imaging: Abdominal CT: A non specific lobulated subcutanous rim-enhancing fluid collection seen within the epigastrium centered along the midline with questionable abscess, seroma, infected seroma. A short segment of lap.band tubing is seen traversing the inferior aspect of this subcutanous fluid collection. A 1.3 cm rim enhancing hypodense left heptic focus noted, abscess vs. neoplastic disease. There also appears to be a non specific rim enhancing inperposed bet gastric body gastric band and left hepatic tube, questionable abscess, post surgical abscess. There appears to be soft tissue stranding/edema interposed between the gastric body and pancreatic body. GI: Abdominal pain, acute Abdmina CT as noted above IR guided drainage today with drain placed Surgery and plastic surgery consulted Monitor WBC, fevers On Zosyn per ID Follow up blood cultures Pulm: Shortness of breath, chest pain, resolved D dimer elevated, CTA negative for PE. Chest xray with clear lungs. Troponin negative. Heme: Anemia, iron studies pending Stool occult blood ordered : UA with + Blood UC pending disposition: full code
[2017-08-24] MEDS ORDERED: POTASSIUM CHLORIDE 10 MEQ in SODIUM CHLORIDE 100 ML IVPB SCH (11:00)
--- NOTE | 2017-08-24 13:08 | PN ---
Progress Note, Physician History of Present Illness: patient stable had drainage done with drainage tube - Current Medication List Current Medications: Active Medications Acetaminophen (Tylenol -) 650 mg PO Q4H PRN PRN Reason: PAIN LEVEL 1-5 Last Admin: 08/23/17 23:35 Dose: 650 mg Heparin Sodium (Porcine) (Heparin -) 5,000 unit SQ TID STEPHANI Last Admin: 08/24/17 05:17 Dose: 5,000 unit Piperacillin Sod/Tazobactam (Sod 3.375 gm/ Dextrose) 50 mls @ 100 mls/hr IVPB Q8H-IV STEPHANI; Protocol Last Admin: 08/24/17 09:51 Dose: 100 mls/hr Morphine Sulfate (Morphine Sulfate) 2 mg IVPUSH Q4H PRN PRN Reason: PAIN LEVEL 6-10 Last Admin: 08/24/17 08:41 Dose: 2 mg - Objective Vital Signs: Vital Signs Temperature 99.1 F 08/24/17 10:00 Pulse Rate 91 H 08/24/17 10:00 Respiratory Rate 20 08/24/17 10:00 Blood Pressure 117/75 08/24/17 10:00 O2 Sat by Pulse Oximetry (%) 99 08/23/17 22:10 Constitutional: Yes: No Distress, Calm Respiratory: Yes: Regular, CTA Bilaterally Gastrointestinal: Yes: Normal Bowel Sounds, Soft Musculoskeletal: Yes: WNL Extremities: Yes: WNL Wound/Incision: Yes: Draining (drainage tube in place), Other Neurological: Yes: Alert, Oriented Psychiatric: Yes: Alert, Oriented Labs: CBC, BMP 08/24/17 07:00 08/24/17 07:00 INR, PTT INR 1.32 (0.82-1.09) H 08/24/17 07:00 Assessment/Plan 42 yo woman with pmh of gastric band placement and prior tummy tuck surgery (3 months ago in [place]), who presents to [facility] with one week of abdominal pain, fevers and CUT OFF SAW TENDER METAL cough. Ab/pelvis CT notable for results as above. after looking at the results patient needs drainage.the only issues is that how to proceed IR vs open abd abscess fever cough pain plan continue abx await for cx reports rest continue current mgmt patient stable
--- NOTE | 2017-08-24 15:28 | CONSULT ---
Consult Consult Specialty:: Plastic Surgery - Past Medical History ...: No - Alcohol/Substance Use Hx Alcohol Use: No - Smoking History Smoking history: Never smoked Home Medications - Allergies Allergies/Adverse Reactions: Allergies Allergy/AdvReac Type Severity Reaction Status Date / Time No Known Allergies Allergy Verified 08/23/17 13:40 Physical Exam Vital Signs: Vital Signs Temperature 99.1 F 08/24/17 10:00 Pulse Rate 90 08/24/17 13:37 Respiratory Rate 15 08/24/17 13:37 Blood Pressure 127/83 08/24/17 13:37 O2 Sat by Pulse Oximetry (%) 99 08/24/17 13:37 Labs: CBC, BMP 08/24/17 07:00 08/24/17 07:00 Assessment/Plan This patient is 3 months s/p cosmetic abdominoplasty done in [place]. She presented with an abdominal seroma and question of an infection within that seroma. A catheter was placed percutaneously in the left upper quadrant by radiology and remains indwelling and is functioning well. Please reconsult if any additional information or input is required.
[2017-08-24] MEDS: ACETAMINOPHEN 325 MG TABLET (FP) PO PRN (15:51)
--- NOTE | 2017-08-24 16:08 | CONSULT ---
Consult Consult Specialty:: Plastic Surgery - Past Medical History ...: No - Alcohol/Substance Use Hx Alcohol Use: No - Smoking History Smoking history: Never smoked Home Medications - Allergies Allergies/Adverse Reactions: Allergies Allergy/AdvReac Type Severity Reaction Status Date / Time No Known Allergies Allergy Verified 08/23/17 13:40 Physical Exam Vital Signs: Vital Signs Temperature 99.1 F 08/24/17 10:00 Pulse Rate 90 08/24/17 13:37 Respiratory Rate 15 08/24/17 13:37 Blood Pressure 127/83 08/24/17 13:37 O2 Sat by Pulse Oximetry (%) 99 08/24/17 13:37 Labs: CBC, BMP 08/24/17 07:00 08/24/17 07:00 Assessment/Plan This is an addendum to my previous consult. I reviewed radiographic images with Dr. Draper. The fluid collection in question was not a typical subcutaneous seroma. It was a small subcutaneous collection that was suspicious for infection beneath a [id number] erythematous area. This small collection is noted to be near the catheter for her gastric band, even though the port for this band was now moved to the right- lower-quadrant at the level of her abdominoplasty scar. Only minimal drainage was obtained according to Dr. Draper and the catheter was left draining simply to gravity. It's difficult to know by looking at the scans whether this small collection is amenable to treatment this way or if a more formal incision and drainage will be required. For now the plan should be to monitor the drain output for 24 hours and to remove the catheter at that point if drainage is insignificant. Once the catheter is removed she can be discharged and followed up in my office as an outpatient.
[2017-08-25] MEDS ORDERED: PIPERACILLIN/TAZOBACTAM 3.375 GM VIAL IVPB ONE ×3 (01:57→17:27)
[2017-08-25] MEDS ORDERED: DEXTROSE 5%-WATER - 50 ML IVPB ONE ×2 (01:57→17:27)
[2017-08-25] MEDS: PIPERACILLIN/TAZOB 3.375 GM 3.375 GM in DEXTROSE 5%-WATER - 50 ML IVPB SCH ×3 (02:10→17:30)
[2017-08-25] MEDS: morphine SULFATE 4 MG/ML VIAL IVPUSH PRN (02:59)
[2017-08-25] MEDS: HEPARIN NA (PORCINE) 5,000 UNITS/ML 1ML VIAL SQ SCH ×3 (05:50→21:06)
[2017-08-25] MEDS ORDERED: MAGNESIUM HYDROX 2400MG/30ML ORAL SUSPENSION 30 ML CUP PO ONE (06:29)
[2017-08-25] MEDS: POLYETHYLENE GLYCOL 3350 119 GM BTL PO SCH (09:54)
[2017-08-25 10:15] LABS: BASO % 0.1 % (0-2.0); EOS % 0.3 % (0-4.5); HEMATOCRIT 31.1 % (32.4-45.2); HEMOGLOBIN 10.4 GM/dL (10.7-15.3); LYMPH % 16.6 % (8-40); MCH 26.2 pg (25.7-33.7); MCHC 33.3 g/dl (32.0-36.0); MEAN CELL VOLUME 78.8 fl (80-96); MEAN PLT VOLUME 8.6 fl (7.5-11.1); PLATELET COUNT 297 K/MM3 (134-434); RBC 3.95 M/mm3 (3.60-5.2); RDW 15.3 % (11.6-15.6); WHITE BLOOD COUNT 8.5 K/mm3 (4.0-10.0)
[2017-08-25 10:32] LABS: CHLORIDE 102 mmol/L (98-107); POTASSIUM 3.3 mmol/L (3.5-5.1); SODIUM 139 mmol/L (136-145)
[2017-08-25 10:44] LABS: ALBUMIN 2.7 g/dl (3.4-5.0); ALK PHOS 61 U/L (45-117); ANION GAP 7 (8-16); BILIRUBIN,TOTAL 0.2 mg/dL (0.2-1.0); BLOOD UREA NITROGEN 12 mg/dL (7-18); CALCIUM 8.6 mg/dL (8.5-10.1); CO2 30 mmol/L (21-32); CREATININE 0.6 mg/dL (0.55-1.02); GLUCOSE,RANDOM 100 mg/dL (74-106); SGOT/AST 11 U/L (15-37); SGPT/ALT 18 U/L (12-78); TOT PROT 6.4 g/dl (6.4-8.2)
[2017-08-25] MEDS ORDERED: POTASSIUM CHLORIDE TABS 20 MEQ TABLET.ER (FP) PO ONE (11:00)
--- NOTE | 2017-08-25 11:33 | PN ---
Physical Exam: SUBJECTIVE: Patient seen and examined at the bedside. Constipated overnight, denies chest pain or abdominal pain. Feels better today. OBJECTIVE: Abdominal pain improving For repeat Ct today Had drain placed yesterday by IR with scant amt of drainage Vital Signs Period Temp Pulse Resp BP Sys/Horowitz Pulse Ox Last 24 Hr 98 F-100.1 F 66-96 14-27 121-137/70-83 95-99 GENERAL: The patient is awake, alert, and fully oriented, in no acute distress. HEAD: Normal with no signs of trauma. EYES: PERRL, extraocular movements intact, sclera anicteric, conjunctiva clear. No ptosis. ENT: Ears normal, nares patent, oropharynx clear without exudates, moist mucous membranes. NECK: Trachea midline, full range of motion, supple. LUNGS: Breath sounds equal, clear to auscultation bilaterally, no wheezes, no crackles, no accessory muscle use. HEART: Regular rate and rhythm ABDOMEN: Soft, nontender, nondistended, normoactive bowel sounds, catheter placed via gravity, no drainage EXTREMITIES: 2+ pulses, warm, well-perfused, no edema. NEUROLOGICAL: Cranial nerves II through XII grossly intact. Normal speech, gait not observed. PSYCH: Normal mood, normal affect. Laboratory Results - last 24 hr 08/25/17 08/25/17 09:40 09:40 WBC 8.5 D RBC 3.95 Hgb 10.4 L Hct 31.1 L MCV 78.8 L MCH 26.2 MCHC 33.3 RDW 15.3 Plt Count 297 MPV 8.6 Absolute Neuts (auto) 6.3 Neutrophils % 74.0 Lymphocytes % 16.6 Monocytes % 9.0 Eosinophils % 0.3 Basophils % 0.1 Nucleated RBC % 0 Sodium 139 Potassium 3.3 L Chloride 102 Carbon Dioxide 30 Anion Gap 7 L BUN 12 Creatinine 0.6 Creat Clearance w eGFR > 60 Random Glucose 100 Calcium 8.6 Ferritin 50.7 Total Bilirubin 0.2 D AST 11 L ALT 18 Alkaline Phosphatase 61 Total Protein 6.4 Albumin 2.7 L Active Medications Generic Name Dose Route Start Last Admin Trade Name Freq PRN Reason Stop Dose Admin Acetaminophen 650 mg 08/23/17 21:14 08/24/17 15:51 Tylenol - PO 650 mg Q4H PRN Administration PAIN LEVEL 1-5 Heparin Sodium (Porcine) 5,000 unit 08/24/17 06:00 08/25/17 05:50 Heparin - SQ 5,000 unit TID STEPHANI Administration Piperacillin Sod/Tazobactam 50 mls @ 100 mls/hr 08/24/17 02:00 08/25/17 09:54 Sod 3.375 gm/ Dextrose IVPB 100 mls/hr Q8H-IV STEPHANI Administration Protocol Morphine Sulfate 2 mg 08/23/17 21:14 08/25/17 02:59 Morphine Sulfate IVPUSH 2 mg Q4H PRN Administration PAIN LEVEL 6-10 Polyethylene Glycol 17 gm 08/25/17 10:00 08/25/17 09:54 Miralax (For Daily Use) - PO Not Given DAILY STEPHANI ASSESSMENT/PLAN: Patient is a 42 year old female with a past history of gastric band surgery and recent tummy tuck in [place] 3 months ago. She presents to the ED today with c/o of 1 week of fevers, cough, and abdominal pain. Patient reports that last Tuesday she developed abdominal pain and fever. She also reported and non productive cough. She was seen by her PCP and was given Doxycycline. However, she developed fevers in the 102 yesterday which prompted her ED visit. No drainage from her abdomen reported. Her D Dimer was elevated on admission, but ruled out for PE with a CTA. Imaging: Abdominal CT 08/23/17: A non specific lobulated subcutanous rim-enhancing fluid collection seen within the epigastrium centered along the midline with questionable abscess, seroma, infected seroma. A short segment of lap.band tubing is seen traversing the inferior aspect of this subcutanous fluid collection. A 1.3 cm rim enhancing hypodense left heptic focus noted, abscess vs. neoplastic disease. There also appears to be a non specific rim enhancing inperposed bet gastric body gastric band and left hepatic tube, questionable abscess, post surgical abscess. There appears to be soft tissue stranding/edema interposed between the gastric body and pancreatic body. Abd CT/Pelvis CT 08/25/2017: pending read GI: Abdominal pain, improved s/p Tummy Tuck 3 months ago, now with fluid collection CTAP as noted above IR guided drainage today with drain placed on 08/24/2017 with scant drainage Plastic surgery notes reviewed Monitor WBC, fevers, vitals On Zosyn per ID Follow up blood cultures, wound cultures Pulm: Shortness of breath, chest pain, resolved D dimer elevated, CTA negative for PE. Chest xray with clear lungs. Troponin negative. Heme: Anemia, iron studies pending Stool occult blood negative : UA with + Blood UC pending disposition: full code FEN tolerating PO monitor K levels, repleted regular diet Prophy: DVT: heparin GI; deferred bowel regimen\ full code Visit type - Emergency Visit Emergency Visit: Yes ED Registration Date: 08/23/17 Care time: The patient presented to the Emergency Department on the above date and was hospitalized for further evaluation of their emergent condition. - New Patient This patient is new to me today: No - Critical Care Critical Care patient: No - Discharge Referral Referred to [facility] Med P.C.: No
--- NOTE | 2017-08-25 11:57 | EKG ---
Test Reason : Blood Pressure : / mmHG Vent. Rate : 095 BPM Atrial Rate : 095 BPM P-R Int : 140 ms QRS Dur : 072 ms QT Int : 354 ms P-R-T Axes : 048 010 003 degrees QTc Int : 444 ms NORMAL SINUS RHYTHM NONSPECIFIC T WAVE ABNORMALITY ABNORMAL ECG NO PREVIOUS ECGS AVAILABLE Confirmed by FARIDA LYNN, DOREEN ([id number]) on 08/25/2017 11:57:08 AM Referred By: Confirmed By:DOREEN IQBAL MD
[2017-08-25] MEDS ORDERED: SENNOSIDES 8.6MG TABLET (FP) PO PRN (13:48)
--- NOTE | 2017-08-25 13:58 | PN ---
Progress Note, Physician History of Present Illness: patient doing well no complaints minimal drainage through the tube - Current Medication List Current Medications: Active Medications Acetaminophen (Tylenol -) 650 mg PO Q4H PRN PRN Reason: PAIN LEVEL 1-5 Last Admin: 08/24/17 15:51 Dose: 650 mg Docusate Sodium (Colace -) 100 mg PO TID STEPHANI Heparin Sodium (Porcine) (Heparin -) 5,000 unit SQ TID STEPHANI Last Admin: 08/25/17 13:49 Dose: Not Given Piperacillin Sod/Tazobactam (Sod 3.375 gm/ Dextrose) 50 mls @ 100 mls/hr IVPB Q8H-IV STEPHANI; Protocol Last Admin: 08/25/17 09:54 Dose: 100 mls/hr Morphine Sulfate (Morphine Sulfate) 2 mg IVPUSH Q4H PRN PRN Reason: PAIN LEVEL 6-10 Last Admin: 08/25/17 02:59 Dose: 2 mg Polyethylene Glycol (Miralax (For Daily Use) -) 17 gm PO DAILY STEPHANI Last Admin: 08/25/17 09:54 Dose: Not Given Senna (Senna -) 2 tab PO HS PRN PRN Reason: CONSTIPATION - Objective Vital Signs: Vital Signs Temperature 98.6 F 08/25/17 09:00 Pulse Rate 89 08/25/17 09:00 Respiratory Rate 18 08/25/17 09:00 Blood Pressure 126/73 08/25/17 09:00 O2 Sat by Pulse Oximetry (%) 97 08/25/17 09:00 Constitutional: Yes: No Distress, Calm Cardiovascular: Yes: Regular Rate and Rhythm Respiratory: Yes: Regular, CTA Bilaterally Gastrointestinal: Yes: Normal Bowel Sounds, Soft, Other (drain in place) Musculoskeletal: Yes: WNL Extremities: Yes: WNL Neurological: Yes: Alert, Oriented Psychiatric: Yes: Alert, Oriented Labs: CBC, BMP 08/25/17 09:40 08/25/17 09:40 INR, PTT INR 1.32 (0.82-1.09) H 08/24/17 07:00 Assessment/Plan 42 yo woman with pmh of gastric band placement and prior tummy tuck surgery (3 months ago in [place]), who presents to [facility] with one week of abdominal pain, 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 Ab/pelvis CT notable for results as above. after looking at the results patient needs drainage.the only issues is that how to proceed IR vs open abd abscess fever cough pain plan continue abx await for cx reports ct scan of the abd to look at the cavity rest as per the team
[2017-08-25] MEDS: DOCUSATE SODIUM 100 MG CAPSULE (FP) PO SCH ×2 (15:52→21:06)
[2017-08-25] MEDS: ACETAMINOPHEN 325 MG TABLET (FP) PO PRN (21:05)
[2017-08-26] MEDS ORDERED: PIPERACILLIN/TAZOBACTAM 3.375 GM VIAL IVPB ONE ×2 (01:08→10:27)
[2017-08-26] MEDS ORDERED: DEXTROSE 5%-WATER - 50 ML IVPB ONE ×2 (01:09→10:27)
[2017-08-26] MEDS: PIPERACILLIN/TAZOB 3.375 GM 3.375 GM in DEXTROSE 5%-WATER - 50 ML IVPB SCH ×3 (01:21→10:54)
[2017-08-26] MEDS: DOCUSATE SODIUM 100 MG CAPSULE (FP) PO SCH (06:04)
[2017-08-26] MEDS: HEPARIN NA (PORCINE) 5,000 UNITS/ML 1ML VIAL SQ SCH (06:04)
[2017-08-26 09:38] VITALS: BP 144/88; PULSE 93; TEMP 98.8
[2017-08-26] MEDS: POLYETHYLENE GLYCOL 3350 119 GM BTL PO SCH (10:31)
[2017-08-26 10:56] LABS: BASO % 0.2 % (0-2.0); EOS % 1.2 % (0-4.5); HEMATOCRIT 33.8 % (32.4-45.2); HEMOGLOBIN 10.7 GM/dL (10.7-15.3); LYMPH % 18.6 % (8-40); MCH 25.1 pg (25.7-33.7); MCHC 31.7 g/dl (32.0-36.0); MEAN CELL VOLUME 79.2 fl (80-96); MONO % 8.4 % (3.8-10.2); NEUT % 71.6 % (42.8-82.8); PLATELET COUNT 336 K/MM3 (134-434); RBC 4.26 M/mm3 (3.60-5.2); RDW 15.4 % (11.6-15.6); WHITE BLOOD COUNT 7.9 K/mm3 (4.0-10.0)
--- NOTE | 2017-08-26 11:08 | DS ---
Physical Exam: SUBJECTIVE: Patient seen and examined * patient is leaving AMA* Risks of leaving AMA discussed. 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 OBJECTIVE: Vital Signs Period Temp Pulse Resp BP Sys/Horowitz Pulse Ox Last 24 Hr 98.8 F-100.5 F 80-93 18-20 126-144/77-95 98 PHYSICAL EXAM GENERAL: The patient is awake, alert, and fully oriented, in no acute distress. HEAD: Normal with no signs of trauma. EYES: PERRL, extraocular movements intact, sclera anicteric, conjunctiva clear. No ptosis. ENT: Ears normal, nares patent, oropharynx clear without exudates, moist mucous membranes. NECK: Trachea midline, full range of motion, supple. LUNGS: Breath sounds equal, clear to auscultation bilaterally, no wheezes, no crackles, no accessory muscle use. HEART: Regular rate and rhythm ABDOMEN: Soft, nontender, nondistended, normoactive bowel sounds, catheter placed via gravity, scant drainage, to be removed prior to discharge, leaving AMA EXTREMITIES: 2+ pulses, warm, well-perfused, no edema. NEUROLOGICAL: Cranial nerves II through XII grossly intact. Normal speech, gait not observed. PSYCH: Normal mood, normal affect. LABS Laboratory Results - last 24 hr 08/25/17 08/26/17 07:30 10:10 WBC 7.9 RBC 4.26 Hgb 10.7 Hct 33.8 MCV 79.2 L MCH 25.1 L MCHC 31.7 L RDW 15.4 Plt Count 336 MPV 9.0 Absolute Neuts (auto) 5.7 Neutrophils % 71.6 Lymphocytes % 18.6 Monocytes % 8.4 Eosinophils % 1.2 D Basophils % 0.2 Nucleated RBC % 0 Stool Occult Blood Negative HOSPITAL COURSE: Date of Admission:08/23/17 Date of Discharge: 08/26/17 The patient has requested to sign out AMA, against medical advice. The patient has displayed the capacity to make her own decisions. Discussed with the patient that the plan was to continue IV antibiotics for her postoperative infection as well as surveillance imaging to assure her abdominal abscess are responding to the antibiotics. Other risks include worsening abdominal pain, severe sepsis, septic shock and sudden . The risks of leaving the hospital without completing the full course of IV Zosyn have been discussed. All questions were answered fully. Patient is to seen Dr. Luis Coleman no later than next week. but patient states she is unavailable next week as she is on vacation to [place]. I told her her health should be a priority, but she is refusing. States she will seek medical attention in [place] if she becomes symptomatic. Encouraged her to have her CT imaging on hand as well as her medical records. She is aware of risks of severe sepsis, septic shock, and worsening abdominal pain to name a few. I have called Augmentin into her pharmacy. She is aware. Minutes to complete discharge: 60 Discharge Summary Reason For Visit: POSTOPERATIVE INFECTION Current Active Problems Post op infection (Acute) Condition: Guarded - Instructions Diet, Activity, Other Instructions: Mrs Gale: You were admitted for abdominal pain and postoperative infection and you are being treated with IV antibiotics. You have decided to leave against medical advice. You are currently on Zosyn antibiotics for your infection and the recommendation is that you stay in the hospital for continuos antibiotics as well as surveillence of the multiple abdominal abscesses found on your abdominal CT scan. Since you decided to leave, it is important that you see Dr. Jared Smith next week as well as Dr. Jarrell, your PCP. I understand that you are on vacation next week but it is highly recommended that you see him next week for a followup. You are risking worsening of your infection, which can lead to a decline in your health, sepsis and . I did make an appointment for you on September 13, 2017 to see him (Dr. Smith), but please call his office (phone no. in discharge instructions) for an earlier appointment - very important. I also gave his office your home phone no. I have called antibiotics into your pharmacy. Please call me with any questions that you have. Barbara Triana Sunol [employer] [phone] [facility] Referrals: Tao Jarrlel MD [Primary Care Provider] - Jared Smith MD [Staff Physician] - 1 Week Disposition: AGAINST MEDICAL ADVICE This patient is new to me today: No Emergency Visit: Yes ED Registration Date: 08/23/17 Care time: The patient presented to the Emergency Department on the above date and was hospitalized for further evaluation of their emergent condition. Critical Care patient: No - Discharge Referral Referred to [facility] No
[2017-08-26 12:25] LABS: CHLORIDE 103 mmol/L (98-107); POTASSIUM 3.9 mmol/L (3.5-5.1); SODIUM 138 mmol/L (136-145)
[2017-08-26 13:04] LABS: ALBUMIN 2.9 g/dl (3.4-5.0); ALK PHOS 66 U/L (45-117); ANION GAP 8 (8-16); BILIRUBIN,TOTAL 0.2 mg/dL (0.2-1.0); BLOOD UREA NITROGEN 10 mg/dL (7-18); CALCIUM 8.9 mg/dL (8.5-10.1); CO2 27 mmol/L (21-32); CREATININE 0.6 mg/dL (0.55-1.02); GLUCOSE,RANDOM 90 mg/dL (74-106); SGOT/AST 9 U/L (15-37); SGPT/ALT 18 U/L (12-78); TOT PROT 6.9 g/dl (6.4-8.2)
[2017-08-26 14:17] LABS: SERUM IRON SATURATION 8 % (15-55); TOTAL IRON BINDING CAPACITY 189 ug/dL (250-450); TRANSFERRIN 156 mg/dL (200-370); UIBC 173 ug/dL (131-425)
== END 2017-08-26 14:14 | disposition left against medical advice (07) | DRG 863 ==
LOC: JER 11:18 → JERBED 19:01 → J6S 08-24 00:25
PROVIDERS: ADMIT Internal Medicine; ATTEND Nurse Practitioner Family
PROC: 0J9C30Z Drainage of Pelvic Region Subcutaneous Tissue and Fascia with Drainage Device, Percutaneous Approach (ICD-10-PCS; principal; 2017-08-24)
DX: T81.4XXA Infection following a procedure, initial encounter (principal); Y83.4 Other reconstructive surgery as the cause of abnormal reaction of the patient, or of later complication, without mention of misadventure at the time of the procedure; L91.0 Hypertrophic scar; L90.5 Scar conditions and fibrosis of skin; Z98.84 Bariatric surgery status; D50.9 Iron deficiency anemia, unspecified; R31.9 Hematuria, unspecified
CPT/HCPCS: 10030; 36415; 71046-TC-FY; 71275-TC; 74177-TC; 76080-TC-FY; 76098-TC-FY; 76380-TC; 76998-TC; 80053; 81003; 81015; 82272; 82550; 82728; 83540; 83550; 83605; 83735; 84100; 84466; 84484; 84703; 85025; 85379; 85610; 85730; 87040; 87070; 87075; 87086; 87205; 87899; 93005; 93010; 94010; 99283-25; A4358; C1729; C1769; J0131; J1644; J7030; J7620

== ENCOUNTER 2017-10-31 09:55 | Day surgery (SDC) | payer BC, OTHER ==
--- NOTE | 2017-10-31 10:04 | PDOC ---
Attending Attestation - Resident Resident Name: Socorro Friedman - ED Attending Attestation I have performed the following: I have examined & evaluated the patient, The case was reviewed & discussed with the resident, I agree w/resident's findings & plan, Exceptions are as noted - HPI HPI: 10/31/17 11:38 Drainage from the site of LAP-BAND port, serosanguineous, nonpurulent. No significant pain. Recent "tummy tuck" during which the port was relocated just below the new incision. No fever/chills or other associated constitutional symptoms. Told to come to the emergency room by her surgeon after a course of antibiotics fail to improve the drainage. - Physicial Exam PE: 10/31/17 11:41 Physical exam is normal except for a shallow ulceration at the edge of abdominal incision with a palpable port. Abdomen minimal serosanguineous drainage. No surrounding erythema or purulent discharge. Abdomen soft and nontender. - Medical Decision Making 10/31/17 11:41 Assessment: Migration of LAP-BAND port subcutaneously Plan: Dr. Dodd notified. Saw the patient in the emergency room. To revise the port, outpatient surgery today.
[2017-10-31 10:14] VITALS: BMI 27.3
[2017-10-31 11:28] LABS: URINE APPEARANCE Slightly; URINE BILIRUBIN 1+ (NEGATIVE); URINE COLOR Amber; URINE GLUCOSE (UA) Negative (NEGATIVE); URINE KETONE Negative (NEGATIVE); URINE LEUK ESTERASE Negative (NEGATIVE); URINE NITRITE Negative (NEGATIVE); URINE UROBILINOGEN 0.2 (0.2-1.0)
[2017-10-31 11:33] LABS: URINE PROTEIN 1+ (NEGATIVE)
[2017-10-31 11:34] LABS: HCG,QUALITATIVE URINE Negative
[2017-10-31 11:45] LABS: HEMATOCRIT 36.3 % (32.4-45.2); HEMOGLOBIN 11.6 GM/dl (10.7-15.3); MCH 25.6 pg (25.7-33.7); MCHC 32.1 g/dl (32.0-36.0); MEAN CELL VOLUME 79.7 fl (80-96); MEAN PLT VOLUME 10.2 fl (7.5-11.1); PLATELET COUNT 232 K/MM3 (134-434); RBC 4.55 M/mm3 (3.60-5.2); RDW 17.3 % (11.6-15.6)
[2017-10-31 11:46] LABS: EPI CELLS MODERATE /HPF; URINE MUCUS MODERATE; URINE RBC 20-30 /hpf (0-3); URINE WBC 0-3 (0-5)
[2017-10-31 11:49] LABS: ANION GAP 7 MMOL/L (8-16); BLOOD UREA NITROGEN 17 mg/dl (7-18); CALCIUM 8.8 mg/dl (8.4-10.2); CHLORIDE 103 mmol/L (98-107); CO2 27 mmol/L (22-28); CREATININE 0.6 mg/dl (0.6-1.3); GLUCOSE,RANDOM 93 mg/dl (74-106); POTASSIUM 3.6 mmol/L (3.5-5.1); SODIUM 137 mmol/L (136-145)
--- NOTE | 2017-10-31 12:43 | PDOC ---
History of Present Illness - General Chief Complaint: Redness To Affected Area Stated Complaint: LAP BAND PORT PROBLEM Time Seen by Provider: 10/31/17 10:03 - History of Present Illness Initial Comments: Nica Gale is a 42yo woman with a lap band placed years ago and abdominoplasty in June who presents today with concerns for infection of her lap band port. She reports that following her abdominoplasty, her port was moved from the right upper to lower abdomen along her incision line. About 2-3 weeks ago, she noticed that the port was "up against the skin" and she had overlying redness, opening of the incision, drainage, and pain. She saw Dr Dodd for evaluation and was told that the site was infected. She was started on ciprofloxacin 500mg BID and told to present to the ED if her symptoms worsened. Today, she felt that the pain had worsened significantly. She called Dr Dodd and was told to come to the ED. Ms Gale denies any recent fevers or chills. She has not noticed any increased redness or swelling around the incision. She reports some clear, thin, yellowish drainage from the wound but no pus or bleeding. She has been taking her cipro as prescribed. Past History - Past Medical History Allergies/Adverse Reactions: Allergies Allergy/AdvReac Type Severity Reaction Status Date / Time No Known Allergies Allergy Verified 10/31/17 09:56 Home Medications: Ambulatory Orders Ciprofloxacin [Cipro (Restricted To Id)] 500 mg PO Q12H 10/31/17 Anemia: Yes (Iron infusion started 2 mos ago) Asthma: No Cancer: No Cardiac Disorders: No CVA: No COPD: No CHF: No Dementia: No Diabetes: No GI Disorders: Yes (GERD) Disorders: No HTN: No Hypercholesterolemia: No Liver Disease: No Seizures: No Thyroid Disease: No - Surgical History Abdominal Surgery: Yes (ABDOMINOPLASTY WITH COMPLICATIONS) Appendectomy: No Cardiac Surgery: No Cholecystectomy: No Gastric Stapling: No (LAP BAND) Lung Surgery: No Neurologic Surgery: No Orthopedic Surgery: No - Suicide/Smoking/Psychosocial Hx Smoking History: Never smoked Hx Alcohol Use: No Drug/Substance Use Hx: No Substance Use Type: None Hx Substance Use Treatment: No Review of Systems - Review of Systems Comments:: General: No fevers, no chills, no weight or appetite change, no malaise HEENT: No changes in vision, no changes in hearing, no congestion, no sore throat CV: No chest pain, no palpitations, no LE edema Pulm: No SOB, no cough, no wheezing GI: No nausea or vomiting, no change in bowel habits, no melena : No frequency, no urgency, no dysuria Musc: No back pain, no joint swelling, no recent injury Skin: No rash, no lesions, no erythema Endo: No excessive thirst, no heat/cold intolerance Heme: No unusual bruising or bleeding, no swollen glands Neuro: No syncope, no numbness/tingling, no focal weakness Vasc: No claudication Psych: No recent change in mood, no SI or HI *Physical Exam - Vital Signs Last Vital Signs Temp Pulse Resp BP Pulse Ox 98.6 F 78 16 154/104 100 10/31/17 09:56 10/31/17 09:56 10/31/17 09:56 10/31/17 09:56 10/31/17 09:56 - Physical Exam Comments: General: Comfortable, no acute distress HEENT: PERRL, EOMI, MMM, voice normal, normal neck ROM, no LAD Cards: RRR, no murmur appreciated Pulm: Comfortable on room air, clear to auscultation bilaterally Abd: Soft, nondistended. Healed transverse lower abdominal incision with 0.5cm dehiscence approximately 2-3 inches to right of midline. Lap band port palpable under area of dehiscence, TTP. No surrounding erythema or edema. No visible drainage from wound. Port visible through open incision. : No CVA tenderness Ext: Atraumatic. No LE edema. ROM intact. Strength 5/5 and equal bilaterally Vasc: Extremities WWP. Palpable radial and pedal pulses bilaterally Neuro: A&Ox3, CN grossly intact, normal speech, motor/sensory grossly intact and symmetric Psych: Mood appropriate to situation ED Treatment Course - LABORATORY CBC & Chemistry Diagram: 10/31/17 11:30 10/31/17 11:30 - ADDITIONAL ORDERS Additional order review: Laboratory Results 10/31/17 10/31/17 11:30 11:21 Sodium 137 Potassium 3.6 Chloride 103 Carbon Dioxide 27 Anion Gap 7 L BUN 17 Creatinine 0.6 Creat Clearance w eGFR > 60 Random Glucose 93 Calcium 8.8 Urine Color Demetrice Urine Appearance Slightly Urine pH 6.0 Ur Specific [place] >= 1.030 H Urine Protein 1+ H Urine Glucose (UA) Negative Urine Ketones Negative Urine Blood 2+ H Urine Nitrite Negative Urine Bilirubin 1+ H Urine Urobilinogen 0.2 Ur Leukocyte Esterase Negative Urine RBC 20-30 Urine WBC 0-3 Ur Epithelial Cells Moderate Urine Mucus Moderate Urine HCG, Qual Negative 10/31/17 11:30 RBC 4.55 MCV 79.7 L MCHC 32.1 RDW 17.3 H MPV 10.2 Medical Decision Making - Medical Decision Making Johanna Gale is a 42yo woman s/p lap band years ago and s/p abdominoplasty in June of this year who presents with worsening of a surgical site infection with dehiscence and exposed lap band port. - As Ms Gale has been on antibiotics for two weeks, site does not appear grossly infected at this time. However, given exposure of lap band port and previous erythema and drainage, per patient, the port is likely infected. - Seen in the ED by Dr Dodd - plan to admit for surgical removal of the infected port today - CBC, BMP, UA, urine preg ordered for preop. No coags per Dr Dodd. - Plan to admit [facility] for outpatient surgery. Discussed with Dr Marquez. *DC/Admit/Observation/Transfer Diagnosis at time of Disposition: Post op infection Qualifiers: Encounter type: subsequent encounter Qualified Code(s): T81.4XXD - Infection following a procedure, subsequent encounter - Discharge Dispostion Condition at time of disposition: Good Decision to Admit order: Yes - Referrals Referrals: Tristan Dodd MD [Primary Care Provider] - - Patient Instructions - Post Discharge Activity
[2017-10-31] MEDS ORDERED: BUPIVACAINE HCL/PF 2.5 MG/ML - 30 ML VIAL IJ ONE (13:33)
[2017-10-31] MEDS ORDERED: MIDAZOLAM HCL 2 MG/2 ML SINGLE DOSE VIAL ONE ×3 (14:08→14:19)
[2017-10-31] MEDS ORDERED: SODIUM CHLORIDE 0.9% P/F 10 ML VIAL IJ ONE (14:10)
[2017-10-31] MEDS ORDERED: PROPOFOL 20 ML ONE (14:12)
[2017-10-31] MEDS ORDERED: SODIUM CHLORIDE 1,000 ML IV SCH (14:45)
[2017-10-31] MEDS ORDERED: ONDANSETRON 4 MG/2 ML VIAL IVPUSH PRN (14:45)
[2017-10-31] MEDS ORDERED: oxyCODONE HCL 5 MG TABLET PO PRN (14:45)
--- NOTE | 2017-10-31 14:51 | OP ---
Operative Note - Note: Operative Date: 10/31/17 Pre-Operative Diagnosis: Infected Subcutaneous Gastric Band Port Operation: Removal of infected Subcutaneous Gastric Band Port. I&D of infected subcutaneous tissue Findings: Skin over port in right lower abdomen where abdominoplasty transverse incision is was opened exposing port. Fluid oozing from opening. Post-Operative Diagnosis: Same as Pre-op (infected subcutaneous tissue) Surgeon: Tristan Dodd Anesthesia: MAC Specimens Removed: Subcutaneous gastric band port Estimated Blood Loss (mls): 10 Operative Report Dictated: Yes
[2017-10-31] MEDS ORDERED: FAMOTIDINE 20 MG/50 ML IVPB 20 MG/50 ML MG IVPB ONE (15:04)
[2017-10-31] MEDS ORDERED: FAMOTIDINE 20 MG PREMIXED IVPB IVPB ONE (15:10)
[2017-10-31 16:29] VITALS: BP 133/85; PULSE 75; TEMP 98.1
--- NOTE | 2017-10-31 21:13 | OP ---
DATE OF OPERATION: 10/31/2017 PREOPERATIVE DIAGNOSIS: Infected subcutaneous gastric band port in the right lower quadrant. POSTOPERATIVE DIAGNOSIS: 1. Infected subcutaneous gastric band port in the right lower quadrant. 2. Infected subcutaneous tissue of right lower quadrant. PROCEDURE PERFORMED: 1. Removal of infected subcutaneous gastric band port. 2. Incision and drainage of infected subcutaneous tissue. OPERATING SURGEON: Nicole Ventura M.D. ANESTHESIA: MAC DESCRIPTION OF PROCEDURE: The patient was brought to the operating room, placed on the OR table in the supine position. Padding was placed under the abdomen, and at that point attention was directed to the right lower quadrant. Here, the gastric band port which had been moved during the patient's abdominoplasty by the plastic surgeon and placed in the right lower quadrant in the area of the transverse incision down by the inguinal area. The patient had a erosion of the incision and now exposed to subcutaneous port, which being a foreign body meant it was infected. At that point, the right lower abdominal cavity was prepped and draped in the usual manner. 0.25% Marcaine was inserted just above the port in the dermis and subcutaneous tissue. Once this took effect, the scalpel was used to make an incision extending immediately from the opening so that approximately 1/3 of the port was exposed. A clamp was then used to lift the port up off it subcutaneous location and brought up into the operative field. Once this was done, the port was then pulled, and the tubing, which with the subcutaneous tissue was extended for about 6-8 cm. Here, a 2-0 Prolene tie was placed as high up as possible. This was done to tie off the tubing. The tubing was then cut as far into the subcutaneous tissue as possible, and then set was used to place tubing more up toward the upper portion of the abdominal wall where it exits the peritoneum up by the right upper quadrant. This was in order for it to get as far away from any infected material in the right lower abdominal wall as possible. At this point, there was some area of inflammation in the area with some necrotic tissue. This was debrided off the muscle and also the subcutaneous tissue. Once this was done completely, there was minor oozing which was controlled easily with electrocautery. At this point, 1-inch plain packing was placed in the subcutaneous tissue in a superior and medial direction from where the incision was. Once this was done, dressings were placed, the patient then awakened from anesthesia and transferred out of the operating room to the recovery room in stable condition. Anesthesia in the case was MAC, surgeon was Dr. Ventura, expected blood loss was 10 mL, patient transferred to recovery room in stable condition. NICOLE VENTURA M.D. [id number]
[2017-10-31] MEDS ORDERED: FAMOTIDINE 20 MG/50 ML IVPB 20 MG/50 ML MG IVPB SCH (22:00)
--- NOTE | 2017-11-03 17:35 | PATH ---
Surgical Pathology Report Patient Name: REFUGIO ROSA Med. Rec. #: [id number] /Age/Gender: 1975 (Age: 42) / F Account: [id number] Location: [facility] MED-SURG Taken: 10/31/2017 Received: 10/31/2017 Reported: 11/03/2017 Physicians: Tristan Dodd M.D. Specimen(s) Received EXPLANTED GASTRIC PORT Clinical History Infected subcutaneous gastric port Final Diagnosis GASTRIC PORT, EXPLANT: GASTRIC PORT, DESCRIBED (GROSS EXAMINATION ONLY). Electronically Signed Demetrice Chavarria M.D. Gross Description Received fresh labeled "explanted gastric port," is a 3 cm in diameter x 1.5 cm in depth ragland, circular device, consistent with a port. The port displays an 8 cm in length portion of tubing extending from one aspect. No soft tissue is present. No sections are submitted, gross only. 11/01/2017 [facility]11/01/2017
== END 2017-10-31 18:18 | disposition home or self-care (01) ==
LOC: FER 09:55 → FASUSAT 12:43 → FM/S 13:12 → FASUSAT 18:18
PROVIDERS: ATTEND Surgery
PROC: 0JB80ZZ Excision of Abdomen Subcutaneous Tissue and Fascia, Open Approach (ICD-10-PCS; 2017-10-31)
PROC: 0DP60CZ Removal of Extraluminal Device from Stomach, Open Approach (ICD-10-PCS; principal; 2017-10-31 14:22)
DX: K95.01 Infection due to gastric band procedure (principal); L08.9 Local infection of the skin and subcutaneous tissue, unspecified; D64.9 Anemia, unspecified; K21.9 Gastro-esophageal reflux disease without esophagitis
CPT/HCPCS: 36415; 80048; 81003; 81015; 84703; 85027; 87070; 87205; 88300-TC; 94760; 99282-25

== ENCOUNTER 2017-12-29 10:53 | Day surgery (SDC) | payer BC, OTHER ==
--- NOTE | 2017-12-29 10:55 | PDOC ---
History of Present Illness - General Chief Complaint: Pain Stated Complaint: ABD PAIN, POSSIBLE REMOVAL OF LAP BAND Time Seen by Provider: 12/29/17 10:55 History Source: Patient Exam Limitations: No Limitations - History of Present Illness Initial Comments: 42 yo F history lap band, recent complicated abdominoplasty, sent by Dr. Dodd for admission for lap band removal. She states that the lap band was placed years ago, but when she had a tummy tuck a few months ago, it appears that her port became infected. Initially the port was removed, but she still had the infection. Denies fever, vomiting. No pain currently. Past History - Past Medical History Allergies/Adverse Reactions: Allergies Allergy/AdvReac Type Severity Reaction Status Date / Time No Known Allergies Allergy Verified 12/29/17 10:54 Home Medications: Ambulatory Orders Sulfamethoxazole/Trimethoprim [Bactrim Ds -] 1 tab PO BID 12/29/17 Anemia: Yes (Iron infusion started 2 mos ago) Asthma: No Cancer: No Cardiac Disorders: No CVA: No COPD: No CHF: No Dementia: No Diabetes: No GI Disorders: Yes (GERD) Disorders: No HTN: No Hypercholesterolemia: No Liver Disease: No Seizures: No Thyroid Disease: No - Surgical History Abdominal Surgery: Yes (ABDOMINOPLASTY WITH COMPLICATIONS) Appendectomy: No Cardiac Surgery: No Cholecystectomy: No Gastric Stapling: No (LAP BAND) Lung Surgery: No Neurologic Surgery: No Orthopedic Surgery: No - Suicide/Smoking/Psychosocial Hx Smoking History: Never smoked Hx Alcohol Use: No Drug/Substance Use Hx: No Substance Use Type: None Hx Substance Use Treatment: No Review of Systems - Review of Systems Able to Perform ROS?: Yes Comments:: GENERAL/CONSTITUTIONAL: No fever or chills. No weakness. HEAD, EYES, EARS, NOSE AND THROAT: No change in vision. No ear pain or discharge. No sore throat. CARDIOVASCULAR: No chest pain or shortness of breath. RESPIRATORY: No cough, wheezing, or hemoptysis. GASTROINTESTINAL: No nausea, vomiting, diarrhea or constipation. GENITOURINARY: No dysuria, frequency, or change in urination. MUSCULOSKELETAL: No joint or muscle swelling or pain. No neck or back pain. SKIN: No rash NEUROLOGIC: No headache, vertigo, loss of consciousness, or change in strength/ sensation. ENDOCRINE: No increased thirst. No abnormal weight change. HEMATOLOGIC/LYMPHATIC: No anemia, easy bleeding, or history of blood clots. ALLERGIC/IMMUNOLOGIC: No hives or skin allergy. *Physical Exam - Physical Exam Comments: GENERAL: Awake, alert, and fully oriented, in no acute distress HEAD: No signs of trauma EYES: PERRLA, EOMI, sclera anicteric, conjunctiva clear ENT: Auricles normal inspection, hearing grossly normal, nares patent, oropharynx clear without exudates. Moist mucosa NECK: Normal ROM, supple, no lymphadenopathy, JVD, or masses LUNGS: Breath sounds equal, clear to auscultation bilaterally. No wheezes, and no crackles HEART: Regular rate and rhythm, normal S1 and S2, no murmurs, rubs or gallops ABDOMEN: Soft, nontender, normoactive bowel sounds. No guarding, no rebound. No masses. +Multiple abdominal scars. Mild tenderness RLQ at site of port removal. EXTREMITIES: Normal range of motion, no edema. No clubbing or cyanosis. No cords, erythema, or tenderness NEUROLOGICAL: Cranial nerves II through XII grossly intact. Normal speech, normal gait SKIN: Warm, Dry, normal turgor, no rashes or lesions noted. Medical Decision Making - Medical Decision Making 12/29/17 11:32 Preop labs sent, patient prepped for OR as per Dr. Dodd. *DC/Admit/Observation/Transfer Diagnosis at time of Disposition: Post op infection Qualifiers: Encounter type: initial encounter Postoperative infection type: unspecified type Qualified Code(s): T81.40XA - Infection following a procedure, unspecified , initial encounter - Discharge Dispostion Condition at time of disposition: Stable Decision to Admit order: Yes - Referrals Referrals: Tao Jarrell MD [Primary Care Provider] - - Patient Instructions - Post Discharge Activity
[2017-12-29 11:01] VITALS: BMI 28.3
[2017-12-29 11:35] LABS: BASO % 0.4 % (0-2.0); EOS % 0.8 % (0-4.5); HEMATOCRIT 37.4 % (32.4-45.2); HEMOGLOBIN 12.1 GM/dl (10.7-15.3); LYMPH % 28.2 % (8-40); MCH 26.4 pg (25.7-33.7); MCHC 32.4 g/dl (32.0-36.0); MEAN CELL VOLUME 81.6 fl (80-96); MEAN PLT VOLUME 9.6 fl (7.5-11.1); MONO % 7.1 % (3.8-10.2); NEUT % 63.5 % (42.8-82.8); PLATELET COUNT 244 K/MM3 (134-434); RBC 4.58 M/mm3 (3.60-5.2); RDW 15.3 % (11.6-15.6); WHITE BLOOD COUNT 7.1 K/mm3 (4.0-10.8)
[2017-12-29 11:40] LABS: URINE APPEARANCE CLEAR; URINE BILIRUBIN NEGATIVE (NEGATIVE); URINE COLOR YELLOW; URINE GLUCOSE (UA) NEGATIVE (NEGATIVE); URINE KETONE NEGATIVE (NEGATIVE); URINE LEUK ESTERASE NEGATIVE (NEGATIVE); URINE NITRITE NEGATIVE (NEGATIVE); URINE PROTEIN NEGATIVE (NEGATIVE); URINE UROBILINOGEN 0.2 (0.2-1.0)
[2017-12-29 11:51] LABS: INR 1.12 (0.82-1.09); PROTHROMBIN TIME (PATIENT) 12.5 SEC (10.2-13.0)
[2017-12-29 11:53] LABS: ALBUMIN 3.7 g/dl (3.5-5.0); ALK PHOS 63 U/L (32-92); ANION GAP 6 MMOL/L (8-16); BILIRUBIN,TOTAL 0.5 mg/dl (0.2-1.0); BLOOD UREA NITROGEN 17 mg/dl (7-18); CHLORIDE 101 mmol/L (98-107); CO2 24 mmol/L (22-28); CREATININE 0.8 mg/dl (0.6-1.3); GLUCOSE,RANDOM 84 mg/dl (74-106); SGOT/AST 25 U/L (10-42); SGPT/ALT 22 U/L (10-40); SODIUM 131 mmol/L (136-145); TOT PROT 7.2 g/dl (6.4-8.3)
[2017-12-29] MEDS ORDERED: BUPIVACAINE HCL/PF 2.5 MG/ML - 30 ML VIAL IJ ONE (12:00)
[2017-12-29] MEDS ORDERED: GENTAMICIN SO4 80 MG/2 ML VIAL ONE (12:00)
[2017-12-29] MEDS ORDERED: POLYMYXIN B SULFATE 500,000 UNIT VIAL ONE (12:01)
[2017-12-29 12:16] LABS: CALCIUM OXALATE CRYSTALS FEW /hpf (NONE SEEN); EPI CELLS FEW /HPF
[2017-12-29 12:19] LABS: URINE MUCUS 1+
[2017-12-29] MEDS ORDERED: MIDAZOLAM HCL 2 MG/2 ML SINGLE DOSE VIAL ONE (13:02)
[2017-12-29] MEDS ORDERED: PROPOFOL 20 ML ONE (13:02)
[2017-12-29] MEDS ORDERED: ROCURONIUM BROMIDE 50 MG/5 ML VIAL ONE (13:35)
[2017-12-29] MEDS ORDERED: ISOSULFAN BLUE 10 MG/ML VIAL SQ ONE (14:22)
[2017-12-29] MEDS ORDERED: NEOSTIGMINE METHYLSULFATE 0.5 MG/ML - 10 ML MDV ONE (15:09)
[2017-12-29] MEDS ORDERED: ACETAMINOPHEN 325 MG TABLET (FP) PO PRN (16:01)
[2017-12-29] MEDS ORDERED: ONDANSETRON 4 MG/2 ML VIAL IVPUSH PRN (16:01)
--- NOTE | 2017-12-29 16:12 | OP ---
Operative Note - Note: Operative Date: 12/29/17 Pre-Operative Diagnosis: Infected Gastric Band. Multiple abdominal wall abscesses Operation: Removal of infected Gastric Band. Laparoscopic Lysis of Adhesions. Excision of fibrous capsule around stomach. I&D of multiple abdominal wall abscesses. Diagnostic Laparoscopy Findings: Band tubing encased in scar tissue and purulent material extruded when tubing exposed I&D performed on multiple abscesses of abdominal wall Post-Operative Diagnosis: Same as Pre-op (Abdominal adhesions; fibrous capsule around band) Surgeon: Tristan Dodd Anesthesia: General Specimens Removed: Gastric Band plus tubing. Upper abdominal wall abscess tissue Estimated Blood Loss (mls): 20 Operative Report Dictated: Yes
[2017-12-29] MEDS ORDERED: SODIUM CHLORIDE 1,000 ML IV SCH (16:15)
[2017-12-29] MEDS ORDERED: FAMOTIDINE 20 MG/50 ML IVPB 20 MG/50 ML MG IVPB ONE (16:21)
[2017-12-29] MEDS ORDERED: ONDANSETRON 4 MG/2 ML VIAL ONE (16:29)
[2017-12-29] MEDS ORDERED: FAMOTIDINE 20 MG PREMIXED IVPB IVPB ONE (16:30)
[2017-12-29 16:58] LABS: HEMATOCRIT 34.2 % (32.4-45.2); HEMOGLOBIN 11.5 GM/dl (10.7-15.3); MCH 27.4 pg (25.7-33.7); MCHC 33.6 g/dl (32.0-36.0); MEAN CELL VOLUME 81.5 fl (80-96); MEAN PLT VOLUME 9.7 fl (7.5-11.1); PLATELET COUNT 240 K/MM3 (134-434); RDW 15.2 % (11.6-15.6)
[2017-12-29 17:04] LABS: ANION GAP 6 MMOL/L (8-16); BLOOD UREA NITROGEN 18 mg/dl (7-18); CALCIUM 8.7 mg/dl (8.4-10.2); CHLORIDE 102 mmol/L (98-107); CO2 21 mmol/L (22-28); CREATININE 0.8 mg/dl (0.6-1.3); GLUCOSE,RANDOM 145 mg/dl (74-106); POTASSIUM 4.4 mmol/L (3.5-5.1); SODIUM 129 mmol/L (136-145)
[2017-12-29] MEDS ORDERED: MORPHINE SULFATE 2 MG/ML VIAL IVPUSH PRN (19:16)
--- NOTE | 2017-12-29 19:48 | OP ---
DATE OF OPERATION: 12/29/2017 PREOPERATIVE DIAGNOSIS: Infected implantable device secondary to infected gastric band and also multiple abdominal abscesses of the abdominal wall. POSTOPERATIVE DIAGNOSIS: Infected implantable device secondary to infected gastric band and also multiple abdominal wall abscesses and also abdominal adhesions and also fibrous capsule around the stomach. PROCEDURE PERFORMED: 1. Removal of gastric band. 2. Laparoscopic lysis of adhesions. 3. Excision of fibrous capsule around the band. 4. Incision and drainage of multiple abdominal wall abscesses. 5. Diagnostic laparoscopy. OPERATING SURGEON: Nicole Ventura MD ANESTHESIA: General. ESTIMATED BLOOD LOSS: 20 mL. DESCRIPTION OF PROCEDURE: The patient was brought into the operating room and placed on the OR table in a supine position. All precautions were taken initially including padding for the back and the feet, and Venodyne boots were placed on both lower extremities. At that point, the abdomen was prepped and draped in the usual manner. A Veress needle was placed in the left upper quadrant, and a pneumoperitoneum was established. A No. 12 bladeless trocar was placed in the left upper quadrant. Through that trocar, laparoscopic camera was placed. Under direct vision, a No. 12 bladeless trocar was placed to the left costal margin laterally, and a No. 5 bladeless trocar in the right upper quadrant. A Dewayne liver retractor was then placed in the epigastrium to retract the left lobe of the liver. The patient was then placed in 20 degrees reverse Trendelenburg position by Anesthesia. At that point, the band was noted to be around the stomach, but it could not be seen as the stomach was completely over the band and also adherent to the undersuface of the liver. The band tubing also was encased in scar tissue going up to subcutaneous tissue. Since the band tubing was easily palpated, electrocautery was used to open up the scar tissue over the band tubing with care not to take off the falciform ligament. Once this was done, there was noted to be infected material coming out of it confirming the diagnosis of an infected band. The band tubing was completely brought out, and at that point, tension was placed on the band tubing, and electrocautery was then used to dissect the scar tissue off the band tubing until it came to the band around the stomach. With the stomach being retracted inferiorly, care was taken to use electrocautery just over the band itself in order not to cause any damage to surrounding tissues such as the liver and stomach. Once the band was in full view, the band was then cut and was opened up, and it was pulled from around the stomach, and the band and the tubing, which were infected, was sent off the field as a specimen to pathology. At this juncture because of the delicate dissection, Anesthesia had an OG tube in and did insert Methylene blue into the OG tube. This was carefully observed for about 15 minutes, and no Methylene blue was noted outside of the stomach cavity. At this point, under direct vision all trocars were removed, and pneumoperitoneum was released. All trocar sites then received 0.25% Marcaine and were closed with 4-0 Biosyn in subcuticular fashion. At this point, attention was directed to the abdominal wall abscesses. The one in the right upper quadrant just above the umbilicus was opened with a scalpel for about 3 cm. Hemostat was placed underneath the skin, which showed some extension of the abscess cavity, and this was then extended a little bit both inferiorly and superiorly. Some infected material was taken from that site and sent off the field as a specimen to Pathology. A culture was taken and sent off the field to Pathology also. At that point, attention was directed to the abscess in the right lower quadrant of the abdomen over the abdominoplasty incision. There looked to be some purulent material coming from this, so this was opened for about 1 to 1.5 cm. It went down to the abdominal wall musculature, and no further pus was noted, although a culture was taken. There was noted, however, to be a cavity underneath the skin on top of the muscle for the length of the clamp, which was approximately 15 cm. Packing was placed in this area and then both abscess cavities were dressed with 4 x 4's and Tegaderm, and all other trocar sites received dressings. The patient was then awoken from anesthesia and transferred out of the operating room to the recovery room in stable condition. NICOLE VENTURA M.D. [id number]
[2017-12-29] MEDS: morphine CARPU-JECT 2 MG/1 ML DISP.SYRIN IVPUSH PRN ×2 (20:51→23:48)
[2017-12-29] MEDS: FAMOTIDINE 20 MG/50 ML IVPB 20 MG/50 ML MG IVPB SCH (21:50)
[2017-12-29] MEDS: AMPICILLIN NA/SULBACTAM NA 3 GM in SODIUM CHLORIDE 100 ML IVPB SCH (21:50)
[2017-12-30] MEDS: AMPICILLIN NA/SULBACTAM NA 3 GM in SODIUM CHLORIDE 100 ML IVPB SCH (02:28)
[2017-12-30] MEDS: morphine CARPU-JECT 2 MG/1 ML DISP.SYRIN IVPUSH PRN (03:33)
[2017-12-30 06:37] VITALS: BP 125/61; PULSE 90; TEMP 98.5
[2017-12-30] MEDS: AMPICILLIN NA/SULBACTAM NA 3 GM/100 ML BAG IVPB SCH ×2 (09:00→14:03)
[2017-12-30] MEDS: FAMOTIDINE 20 MG/50 ML IVPB 20 MG/50 ML MG IVPB SCH (09:01)
--- NOTE | 2017-12-30 10:12 | PN ---
Progress Note (short form) - Note Progress Note: POD#1 Afebrile;VSS Pt doing well No N/V P/E- RLQ abscess site with drainage, non-purulent All other sites clean, dry Discussed with pt. Received IV antibiotics for purulent drainage around tubing. Will send home on Augmentin for 10 days. F/U with Dr Dodd in 10 days for packing change.
[2017-12-30 11:05] LABS: HEMATOCRIT 33.7 % (32.4-45.2); HEMOGLOBIN 11.3 GM/dl (10.7-15.3); MCH 27.4 pg (25.7-33.7); MCHC 33.4 g/dl (32.0-36.0); MEAN CELL VOLUME 82.1 fl (80-96); MEAN PLT VOLUME 10.1 fl (7.5-11.1); PLATELET COUNT 254 K/MM3 (134-434); RDW 15.4 % (11.6-15.6); WHITE BLOOD COUNT 11.8 K/mm3 (4.0-10.8)
[2017-12-30 11:09] LABS: ALK PHOS 57 U/L (32-92); ANION GAP 4 MMOL/L (8-16); BILIRUBIN,TOTAL 0.3 mg/dl (0.2-1.0); BLOOD UREA NITROGEN 20 mg/dl (7-18); CALCIUM 8.4 mg/dl (8.4-10.2); CHLORIDE 105 mmol/L (98-107); CO2 24 mmol/L (22-28); CREATININE 0.8 mg/dl (0.6-1.3); GLUCOSE,RANDOM 119 mg/dl (74-106); POTASSIUM 3.7 mmol/L (3.5-5.1); SGOT/AST 25 U/L (10-42); SGPT/ALT 20 U/L (10-40); SODIUM 133 mmol/L (136-145)
--- NOTE | 2018-01-02 17:18 | PATH ---
Surgical Pathology Report Patient Name: REFUGIO ROSA Med. Rec. #: [id number] /Age/Gender: 1975 (Age: 42) / F Account: [id number] Location: [facility] MED-SURG Taken: 12/29/2017 Received: 12/29/2017 Reported: 01/02/2018 Physicians: Tristan Dodd M.D. Specimen(s) Received A: GASTRIC BAND AND TUBING B: ABDOMINAL WALL ABSCESS Clinical History Postop infection Final Diagnosis A. GASTRIC BAND AND TUBING, REMOVAL: GASTRIC BAND AND TUBING. MACROSCOPIC DIAGNOSIS. B. ABDOMINAL WALL ABSCESS, EXCISION: SKIN AND SOFT TISSUE WITH ACUTE AND CHRONIC INFLAMMATION, ULCERATION, AND GRANULATION TISSUE. Electronically Signed Carine Peterson M.D. Gross Description A. Received fresh labeled "gastric band and tubing," is a 4.0 cm in diameter white, circular device, consistent with a gastric band. The band displays a 26 cm in length portion of tubing extending from one aspect. No soft tissue is present. No sections are submitted, gross only. B. Received in formalin labeled "abdominal wall abscess," is a 1.4 x 1.0 x 0.3 cm aggregate of ragland, irregular portions of soft tissue. The specimen is submitted in toto in one cassette. 12/30/201712/30/2017
== END 2017-12-30 15:14 | disposition home or self-care (01) ==
LOC: FER 10:53 → FASUSAT 12:26 → FM/S 16:02 → FASUSAT 12-30 15:14
PROVIDERS: ATTEND Surgery
PROC: 0H97XZZ Drainage of Abdomen Skin, External Approach (ICD-10-PCS; 2017-12-29)
PROC: 0DP64CZ Removal of Extraluminal Device from Stomach, Percutaneous Endoscopic Approach (ICD-10-PCS; principal; 2017-12-29 13:56)
DX: K95.01 Infection due to gastric band procedure (principal); L02.211 Cutaneous abscess of abdominal wall; K31.89 Other diseases of stomach and duodenum; K66.0 Peritoneal adhesions (postprocedural) (postinfection)
CPT/HCPCS: 36415; 74241-TC-FY; 80048; 80053; 81003; 81015; 84703; 85025; 85027; 85610; 86850; 86900; 86901; 87070; 87086; 87205; 88300-TC; 88304-TC; 94760; 99285-25; J7030

== ENCOUNTER 2019-09-10 09:40 | Day surgery (SDC) | payer BC, OTHER ==
[2019-09-05 18:43] VITALS: BMI 35.4
[2019-09-10] MEDS ORDERED: PROPOFOL 20 ML ONE ×2 (10:39)
[2019-09-10 12:07] VITALS: TEMP 98.5
[2019-09-10 12:12] VITALS: BP 142/85; PULSE 76
--- NOTE | 2019-09-18 16:43 | PATH ---
Surgical Pathology Report Patient Name: REFUGIO SMITH [facility]. Rec. #: [id number] /Age/Gender: 1975 (Age: 44) / F Account: [id number] Location: [facility] AMBULATORY Taken: 09/10/2019 Received: 09/10/2019 Reported: 09/18/2019 Physicians: Dimitri Quiles M.D. Specimen(s) Received A: SECOND PORTION DUODENUM B: GASTRIC ANTRUM C: GE JUNCTION Clinical History GERD, pre-bariatric checkup Postoperative diagnosis: Gastritis, hiatal hernia Final Diagnosis A. DUODENUM, SECOND PORTION, BIOPSY: DUODENAL MUCOSA WITHOUT SIGNIFICANT PATHOLOGIC FINDINGS. B. GASTRIC ANTRUM, BIOPSY: GASTRIC ANTRAL MUCOSA WITH MILD CHRONIC FOCAL ACTIVE GASTRITIS. IMMUNOHISTOCHEMICAL STAIN FOR H. PYLORI IS NEGATIVE. C. GE JUNCTION, BIOPSY: SQUAMOUS MUCOSA WITH CHANGES OF SEVERE REFLUX TYPE ESOPHAGITIS. NO COLUMNAR MUCOSA, INTESTINAL METAPLASIA, OR DYSPLASIA IDENTIFIED. Positive and negative controls (internal if applicable) show appropriate results. Electronically Signed Carine Peterson M.D. Gross Description A. Received in formalin, labeled "biopsy second portion of duodenum" are 2 ragland, irregular portions of soft tissue measuring 0.3 and 0.5 cm. in greatest dimension. The specimens are submitted in toto in one cassette. B. Received in formalin, labeled "biopsy gastric antrum" are 2 ragland, irregular portions of soft tissue averaging 0.6 cm. in greatest dimension. The specimens are submitted in toto in one cassette. C. Received in formalin, labeled "biopsy GE junction" is a ragland, irregular portion of soft tissue measuring 0.3 cm. in greatest dimension. The specimen is submitted in toto in one cassette. 09/11/2019 saudi09/11/2019
== END 2019-09-10 11:50 | disposition home or self-care (01) ==
LOC: FASU 09:40
PROVIDERS: ATTEND Internal Medicine Gastroenterology
PROC: 0DB68ZX Excision of Stomach, Via Natural or Artificial Opening Endoscopic, Diagnostic (ICD-10-PCS; 2019-09-10)
PROC: 0DB48ZX Excision of Esophagogastric Junction, Via Natural or Artificial Opening Endoscopic, Diagnostic (ICD-10-PCS; 2019-09-10)
PROC: 0DB98ZX Excision of Duodenum, Via Natural or Artificial Opening Endoscopic, Diagnostic (ICD-10-PCS; principal; 2019-09-10 10:50)
DX: K29.50 Unspecified chronic gastritis without bleeding (principal); K44.9 Diaphragmatic hernia without obstruction or gangrene; K31.9 Disease of stomach and duodenum, unspecified; K21.0 Gastro-esophageal reflux disease with esophagitis; R93.3 Abnormal findings on diagnostic imaging of other parts of digestive tract; R12 Heartburn
CPT/HCPCS: 84703; 88305-TC; 88342-TC

== ENCOUNTER 2019-10-08 09:42 | Inpatient (IN) | payer BC, OTHER ==
[2019-10-08 10:25] VITALS: BMI 31.4
[2019-10-08] MEDS ORDERED: MIDAZOLAM HCL 2 MG/2 ML SINGLE DOSE VIAL ONE (10:51)
[2019-10-08] MEDS ORDERED: BUPIVACAINE HCL/PF 0.5% (5 MG/ML) 30 ML VIAL IJ ONE (10:53)
[2019-10-08] MEDS ORDERED: ROCURONIUM BROMIDE 50 MG/5 ML SYRINGE ONE (11:21)
[2019-10-08] MEDS ORDERED: PROPOFOL 20 ML ONE ×2 (11:21→12:31)
[2019-10-08] MEDS ORDERED: LIDOCAINE HCL/PF 2% SDV 5ML VIAL ONE (11:22)
[2019-10-08] MEDS ORDERED: DEXAMETHASONE SOD PHOSPHATE 4 MG/1 ML VIAL ONE (11:22)
[2019-10-08] MEDS ORDERED: KETOROLAC TROMETHAMINE 30 MG/1 ML VIAL ONE ×2 (11:22→12:04)
[2019-10-08] MEDS ORDERED: ONDANSETRON 4 MG/2 ML VIAL IVPUSH PRN ×2 (11:24→14:40)
[2019-10-08] MEDS ORDERED: LACTATED RINGERS SOLUTION 1,000 ML IV SCH (11:30)
[2019-10-08] MEDS ORDERED: HYDROmorphone HCL/PF 1 MG/ML VIAL ONE (12:02)
[2019-10-08] MEDS ORDERED: ceFAZolin SODIUM 1 GM VIAL ONE (12:04)
[2019-10-08] MEDS ORDERED: ONDANSETRON 4 MG/2 ML VIAL ONE (12:04)
[2019-10-08] MEDS ORDERED: GLYCOPYRROLATE 0.2 MG/1 ML VIAL ONE (12:04)
[2019-10-08] MEDS ORDERED: BUPIVACAINE HCL/PF 0.25% (2.5MG/ML) 10 ML VIAL ONE (12:06)
[2019-10-08] MEDS ORDERED: BUPIVACAINE HCL/PF 0.25% (2.5MG/ML) 10 ML VIAL IJ ONE (14:32)
[2019-10-08] MEDS ORDERED: METOCLOPRAMIDE HCL INJECTION 10 MG/2 ML VIAL ONE (14:38)
[2019-10-08] MEDS ORDERED: FAMOTIDINE 20 MG/50 ML IVPB 20 MG/50 ML MG IVPB ONE (14:38)
[2019-10-08] MEDS ORDERED: HYDROmorphone HCL 0.5 MG/0.5 ML SYRINGE IVPB PRN (14:43)
[2019-10-08] MEDS ORDERED: SODIUM CHLORIDE 1,000 ML IV SCH (14:45)
[2019-10-08] MEDS: METOCLOPRAMIDE HCL INJECTION 10 MG/2 ML VIAL IVPUSH SCH ×2 (14:50→19:59)
--- NOTE | 2019-10-08 14:52 | OP ---
Operative Note - Note: Operative Date: 10/08/19 Pre-Operative Diagnosis: Morbid Obesity. Hypertension. Multiple abdominal wall keloid incisions Operation: Laparoscopic Vertical SLeeve Gastrectomy. Wedge biopsy of left lobe of liver. Laparoscopic Lysis of Adhesions. Oversewing of Gastric Staple line. Excision of multiple abdominal wall keloid. Diagnostic Laparoscopy Findings: Greater curve sleeve gastrectomy performed with #[address] Wedge biopsy performed on enlarged left lobe of liver Adhesions lysed between omentum and anterior abdominal wall Gastric staple line oversewn for hemostasis and to assist in prevention of leaks Keloid incisions from abdominal wall secondary to previous incisions Post-Operative Diagnosis: Same as Pre-op (Enlarged liver; abdominal adhesions) Surgeon: Tristan Dodd Material Mixer: Dov Clark Anesthesia: General Specimens Removed: Greater curve of stomach. Wedge biopsy of left lobe of liver. Keloid from sabdominal scar Estimated Blood Loss (mls): 100 Operative Report Dictated: Yes
[2019-10-08] MEDS ORDERED: FAMOTIDINE 20 MG PREMIXED IVPB IVPB ONE (15:09)
[2019-10-08 15:25] LABS: HEMATOCRIT 35.8 % (32.4-45.2); HEMOGLOBIN 11.2 GM/dl (10.7-15.3); MCH 25.3 pg (25.7-33.7); MCHC 31.2 g/dl (32.0-36.0); MEAN PLT VOLUME 10.6 fl (7.5-11.1); PLATELET COUNT 296 K/MM3 (134-434); RBC 4.42 M/mm3 (3.60-5.2); RDW 13.8 % (11.6-15.6)
[2019-10-08 15:33] LABS: ALBUMIN 3.6 g/dl (3.4-5.0); BILIRUBIN,TOTAL 0.4 mg/dl (0.2-1); CALCIUM 8.7 mg/dl (8.5-10); CREATININE 0.9 mg/dl (0.55-1.3); POTASSIUM 3.4 mmol/L (3.5-5.1); TOT PROT 6.6 g/dl (6.4-8.2)
[2019-10-08] MEDS: KCL 10 MEQ IVPB 10 MEQ/100 ML INFUS.BAG IVPB SCH ×2 (17:19→17:35)
[2019-10-08] MEDS: HYDROmorphone HCL/PF 1 MG/ML VIAL IVPB PRN ×2 (17:34→20:58)
--- NOTE | 2019-10-08 17:37 | HP ---
Admitting History and Physical - Past Medical History Cardiovascular: Yes: HTN. No: [place] Pulmonary: No: Asthma ...LMP: 09/09/19 Endocrine: No: Diabetes Mellitus - Smoking History Smoking history: Never smoked Have you smoked in the past 12 months: No - Alcohol/Substance Use Hx Alcohol Use: No Home Medications - Allergies Allergies/Adverse Reactions: Allergies Allergy/AdvReac Type Severity Reaction Status Date / Time No Known Allergies Allergy Verified 10/04/19 14:04 - Home Medications Home Medications: Ambulatory Orders Hydrochlorothiazide [Hctz -] 25 mg PO DAILY 09/05/19 Losartan Potassium 40 mg PO DAILY 09/05/19 Omeprazole 20 mg PO DAILY 09/10/19 Oxycodone HCl/Acetaminophen [Percocet 5-325 mg Tablet] 1 tab PO Q6H PRN #30 tablet MDD 4 10/08/19 Review of Systems - Review of Systems Cardiovascular: reports: No Symptoms Respiratory: reports: No Symptoms Gastrointestinal: reports: Abdominal Pain Genitourinary: reports: No Symptoms Physical Examination Vital Signs: Vital Signs Temperature 98.2 F 10/08/19 14:48 Pulse Rate 82 10/08/19 16:06 Respiratory Rate 14 10/08/19 16:06 Blood Pressure 145/65 10/08/19 16:06 O2 Sat by Pulse Oximetry (%) 98 10/08/19 16:06 Cardiovascular: Yes: Regular Rate and Rhythm Respiratory: Yes: Regular, CTA Bilaterally Gastrointestinal: Yes: Soft, Hypoactive Bowel Sounds Labs: CBC, BMP 10/08/19 14:50 10/08/19 14:50 Problem List - Problems (1) S/P laparoscopic sleeve gastrectomy Assessment/Plan: Per Art[place] follow labs Laboratory Tests 10/08/19 10/08/19 10/08/19 09:55 14:50 14:50 WBC 18.0 H RBC 4.42 Hgb 11.2 Hct 35.8 MCV 81.0 MCH 25.3 L MCHC 31.2 L RDW 13.8 Plt Count 296 MPV 10.6 Sodium 140 Potassium 3.4 L Chloride 104 Carbon Dioxide 24 Anion Gap 12 BUN 20.0 H Creatinine 0.9 Est GFR (CKD-EPI)AfAm 90.13 Est GFR (CKD-EPI)NonAf 77.76 Random Glucose 169 H Calcium 8.7 Total Bilirubin 0.4 AST 43 H ALT 39 Alkaline Phosphatase 60 D Total Protein 6.6 Albumin 3.6 Urine HCG, Qual Negative Code(s): Z98.84 - BARIATRIC SURGERY STATUS (2) HTN (hypertension) Code(s): I10 - ESSENTIAL (PRIMARY) HYPERTENSION (3) Hypokalemia Assessment/Plan: replace and monitor Code(s): E87.6 - HYPOKALEMIA (4) Hyperglycemia Assessment/Plan: a1c Code(s): R73.9 - HYPERGLYCEMIA, UNSPECIFIED
--- NOTE | 2019-10-08 18:52 | OP ---
DATE OF OPERATION: 10/08/2019 PREOPERATIVE DIAGNOSIS: 1. Morbid obesity. 2. Hypertension. POSTOPERATIVE DIAGNOSIS: 1. Morbid obesity. 2. Hypertension. 3. Enlarged left lobe of the liver. 4. Abdominal adhesions. 5. Keloid incision of the abdominal wall. PROCEDURE PERFORMED: 1. Laparoscopic vertical sleeve gastrectomy. 2. Wedge biopsy to left lobe of liver. 3. Laparoscopic lysis of adhesions. 4. Oversewing of gastric staple line. 5. Excision of multiple keloids of abdominal wall. 6. Diagnostic laparoscopy. OPERATING SURGEON: Nicole Dodd MD. GARAGE DOOR OPENER INSTALLER: Dov Clark MD. ANESTHESIA: General. OPERATIVE PROCEDURE: The patient was brought into the operating room, placed on the OR table in the supine position. All precautions were taken initially including padding for the back and the feet, and Venodyne boots were placed on both lower extremities. At that point, the abdomen was prepped and draped in the usual manner. A Veress needle was placed in the left upper quadrant, and a pneumoperitoneum was established. Under direct vision with the laparoscopic camera, a number 5 bladeless trocar was placed in the left upper quadrant. Through that trocar, laparoscope was then placed. Immediately upon placing the laparoscope, there were noted to be a large amount of adhesions in the omentum, the anterior abdominal wall, in the midline extending to the right made it difficult to place the trocar on the right side. A number 5 bladeless trocar was then placed below the left costal margin. Using the number 5 lateral trocar site for the camera, this showed the adhesions in the midline extending to the right falciform ligament. These were divided with the LigaSure device. This was done carefully to make sure there was no bowel, and there was only omentum that was divided all the way along the anterior abdominal wall and all the way to the falciform ligament. Once enough clearing was developed. A number 15 bladeless trocar was placed in the midline above the umbilicus, and a number 5 bladeless trocar was placed in the right upper quadrant. At this point a Dewayne liver retractor was then placed in the epigastrium to retract the left lobe of the liver. The patient was then placed in 20-degree reverse Trendelenburg position by Anesthesia. The pylorus was noted on the distal stomach, and from that area 6 cm were measured proximally on the greater curve of the stomach. Here the operating surgeon lifted the stomach toward the anterior abdominal wall, as the mail handler assistant surgeon retracted the gastrocolic ligament inferiorly. The LigaSure device was then used to dissected gastrocolic ligament and then the short gastric vessels along the greater curve of the stomach. This continued in superior and vertical directions until a final short gastric vessel between the superior pole of the spleen and the proximal fundus was divided. At this juncture, Anesthesia advanced number 36 bougie. With the bougie held on the lesser curvature all the way to the antrum of the stomach, a series of rosemary with the first 2 being black load rosemary 6 cm in length along the bougie. This was all a series of purple load roesmary, also 6 cm in length, and also along the bougie. When the final staple was fired, the greater curve was now completely detached from the lesser curve. It should be noted that prior to firing rosemary, both the anterior and posterior june were checked that they were equal and in area of the esophagogastric junction approximately 0.5 cm serosa remained on the anterior and posterior surfaces. At this juncture, there were noted to be several bleeding points along the staple line, mostly in the proximal section by the proximal fundus and distally down by the antrum. The Endo Stitch was then used to sew the entire staple line from proximal all the way distally to the antrum. This was done in continuous fashion with the Endo Stitch device. This was done to further assist in hemostasis and to prevent any leaks from the staple line. Once this was completed, there was some minor oozing noted in the fat tissue in the gastrocolic ligament at the very distal part of the gastric sleeve. This also was oversewn with the Endo Stitch multiple times in order to contain hemostasis. At this point, saline was placed around the staple line. Anesthesia inserted air into the bougie which showed the entire stomach distended up to the pylorus. No signs of obstruction and no leaks were noted. Attention was now directed to the enlarged left lobe of the liver. The left lobe of the liver was retracted by the liver retractor, but it was still very large, so it was decided to have a wedge biopsy performed. On the inferior edge of the left lobe of the liver, a triangular shaped piece of liver was taken with the LigaSure as it went through the capsule liver. The specimen was sent off the field to pathology to go with the rest of the resected gastric stomach, and then the parenchyma was controlled with electrocautery, as there was only very minor oozing. At this point, Surgicel was placed along the staple line all the way up between the staple line and the spleen, and all the way down to the area of the distal sleeve, and along the area of the gastrocolic ligament where there was some minor oozing. Once this was done, the resected greater curve was moved from the number 15 trocar site and off the field as specimen to pathology. Under direct vision all trocars were removed and pneumoperitoneum released. The midline incision had a previous very wide scar, and this was resected with a scalpel, and then the number 15 trocar site was closed with 3-0 Vicryl on subcutaneous tissue. The right lateral incision also had keloid, and this incision also was extended overly. The skin was resected, and then all trocar sites were injected with 0.25% Marcaine and were closed with rosemary on the skin because of tension. Dressings were then applied, patient awoken from anesthesia and transferred out of the operation room to the recovery room in stable condition. Expected blood loss was 100 mL. Patient transferred to recovery room in stable condition. NICOLE DODD M.D. [id number]
[2019-10-08] MEDS: FAMOTIDINE 20 MG/50 ML IVPB 20 MG/50 ML MG IVPB SCH (21:37)
[2019-10-08 22:27] LABS: HEMOGLOBIN 10.5 GM/dl (10.7-15.3); MCH 25.3 pg (25.7-33.7); MCHC 31.7 g/dl (32.0-36.0); MEAN CELL VOLUME 79.8 fl (80-96); MEAN PLT VOLUME 9.8 fl (7.5-11.1); PLATELET COUNT 209 K/MM3 (134-434); RBC 4.14 M/mm3 (3.60-5.2); RDW 13.9 % (11.6-15.6); WHITE BLOOD COUNT 14.4 K/mm3 (4.0-10.8)
[2019-10-08 22:41] LABS: ALBUMIN 3.4 g/dl (3.4-5.0); BILIRUBIN,TOTAL 0.6 mg/dl (0.2-1); CALCIUM 8.3 mg/dl (8.5-10); CREATININE 0.7 mg/dl (0.55-1.3); POTASSIUM 3.9 mmol/L (3.5-5.1); TOT PROT 6.5 g/dl (6.4-8.2)
[2019-10-09] MEDS: HYDROmorphone HCL/PF 1 MG/ML VIAL IVPB PRN ×2 (00:36→05:10)
[2019-10-09] MEDS: METOCLOPRAMIDE HCL INJECTION 10 MG/2 ML VIAL IVPUSH SCH ×2 (02:26→10:10)
[2019-10-09 08:17] LABS: HEMATOCRIT 31.5 % (32.4-45.2); HEMOGLOBIN 10.2 GM/dl (10.7-15.3); MCHC 32.3 g/dl (32.0-36.0); MEAN CELL VOLUME 80.5 fl (80-96); MEAN PLT VOLUME 9.7 fl (7.5-11.1); PLATELET COUNT 230 K/MM3 (134-434); RBC 3.92 M/mm3 (3.60-5.2); RDW 13.8 % (11.6-15.6); WHITE BLOOD COUNT 13.7 K/mm3 (4.0-10.8)
[2019-10-09 08:27] LABS: ALBUMIN 3.2 g/dl (3.4-5.0); BILIRUBIN,TOTAL 0.6 mg/dl (0.2-1); CALCIUM 8.2 mg/dl (8.5-10); CREATININE 0.8 mg/dl (0.55-1.3); MAGNESIUM 1.8 mg/dL (1.8-2.4); POTASSIUM 3.3 mmol/L (3.5-5.1); TOT PROT 6.1 g/dl (6.4-8.2)
--- NOTE | 2019-10-09 08:57 | PN ---
Progress Note, Physician - Current Medication List Current Medications: Active Medications Hydromorphone HCl (Dilaudid) 0.5 mg IVPB Q4H PRN PRN Reason: PAIN LEVEL 1-5 Hydromorphone HCl (Dilaudid -) 1 mg IVPB Q4H PRN PRN Reason: PAIN LEVEL 6-10 Last Admin: 10/09/19 05:10 Dose: 1 mg Documented by: Famotidine/Sodium Chloride (Pepcid 20 Mg Premixed Ivpb -) 20 mg in 50 mls @ 100 mls/hr IVPB BID [facility] Last Admin: 10/08/19 21:37 Dose: 100 mls/hr Documented by: Sodium Chloride (Normal Saline -) 1,000 mls @ 150 mls/hr IV ASDIR [facility] Last Admin: 10/08/19 17:18 Dose: Not Given Documented by: Metoclopramide HCl (Reglan Injection -) 10 mg IVPUSH Q6H [facility] Last Admin: 10/09/19 02:26 Dose: 10 mg Documented by: Ondansetron HCl (Zofran Injection) 4 mg IVPUSH Q4H PRN PRN Reason: NAUSEA AND/OR VOMITING - Objective Vital Signs: Vital Signs Temperature 97.6 F 10/09/19 06:00 Pulse Rate 86 10/09/19 06:00 Respiratory Rate 18 10/09/19 06:00 Blood Pressure 143/74 10/09/19 06:00 O2 Sat by Pulse Oximetry (%) 98 10/09/19 06:00 Cardiovascular: Yes: Regular Rate and Rhythm Respiratory: Yes: Regular, CTA Bilaterally Gastrointestinal: Yes: Normal Bowel Sounds, Soft, Tenderness, Epigastrium Labs: CBC, BMP 10/09/19 07:21 10/09/19 07:26 Problem List - Problems (1) S/P laparoscopic sleeve gastrectomy Assessment/Plan: Per Sr Artuso follow labs Laboratory Tests 10/08/19 10/08/19 10/08/19 09:55 14:50 14:50 WBC 18.0 H RBC 4.42 Hgb 11.2 Hct 35.8 MCV 81.0 MCH 25.3 L MCHC 31.2 L RDW 13.8 Plt Count 296 MPV 10.6 Sodium 140 Potassium 3.4 L Chloride 104 Carbon Dioxide 24 Anion Gap 12 BUN 20.0 H Creatinine 0.9 Est GFR (CKD-EPI)AfAm 90.13 Est GFR (CKD-EPI)NonAf 77.76 Random Glucose 169 H Calcium 8.7 Total Bilirubin 0.4 AST 43 H ALT 39 Alkaline Phosphatase 60 D Total Protein 6.6 Albumin 3.6 Urine HCG, Qual Negative Code(s): Z98.84 - BARIATRIC SURGERY STATUS (2) HTN (hypertension) Assessment/Plan: MONITOR Vital Signs Period Temp Pulse Resp BP Sys/Horowitz Pulse Ox Last 24 Hr 97.6 F-99.1 F 79-98 12-20 122-145/65-87 95-100 Code(s): I10 - ESSENTIAL (PRIMARY) HYPERTENSION (3) Hypokalemia Assessment/Plan: replace and monitor Code(s): E87.6 - HYPOKALEMIA (4) Hyperglycemia Assessment/Plan: a1c Code(s): R73.9 - HYPERGLYCEMIA, UNSPECIFIED
[2019-10-09 10:09] VITALS: BP 143/81; PULSE 90; TEMP 100
[2019-10-09] MEDS: KCL 10 MEQ IVPB 10 MEQ/100 ML INFUS.BAG IVPB SCH ×2 (10:10→11:30)
[2019-10-09] MEDS: FAMOTIDINE 20 MG/50 ML IVPB 20 MG/50 ML MG IVPB SCH (10:10)
--- NOTE | 2019-10-09 11:29 | PN ---
Progress Note (short form) - Note Progress Note: 44F POD1 s/p lap sleeve gastrectomy under [facility]T. Pt states that pain is well controlled and denies any anesthetic complications. AVSS. Continue current regimen.
[2019-10-09] MEDS ORDERED: KCL 10 MEQ IVPB 10 MEQ/100 ML INFUS.BAG IVPB SCH (12:15)
[2019-10-09] MEDS ORDERED: POTASSIUM CHLORIDE TABS 10 MEQ TABLET.ER (FP) PO ONE (12:45)
--- NOTE | 2019-10-09 13:01 | PN ---
Progress Note (short form) - Note Progress Note: T (max)-100 P-81-90 BP-143/81 Pt oob in chair Tolerating PO clear liquids- 2 oz PO TID No N/V P/E- Abd- all trocar sites with Tegaderm in place dried blood over 2 left trocar sites noted WBC-13.7 (decreased) H/H-10.2/31.5 K+-3.3 P- K+ replacement Increase ambulation D/C home- F/U in 9 days
--- NOTE | 2019-10-09 14:16 | DS ---
DATE OF ADMISSION: 10/08/2019 DATE OF DISCHARGE: 10/09/2019 HISTORY OF PRESENT ILLNESS & HOSPITAL COURSE: Patient is a 44-year-old woman with a history of morbid obesity for many years despite multiple attempts at dietary weight loss. She was admitted to [facility] on October 08, 2019, where a sleeve gastrectomy was performed. The details of the procedure are described in the operative note, but postoperatively the patient was sent to recovery room where she was stabilized and then sent to the floor on a quality assurance monitor. Her vital signs remained stable overnight and the pulse remained in the 80 to 90 range without any abnormalities. The following morning she was sent to the radiology department where a Gastrografin swallow showed no signs of any leak of contrast and no signs of any obstruction. She returned to the floor where she received 2 ounces of clear liquids and tolerated dwell. Her only abnormality was a potassium of 3.3, which is chronic for her secondary to her use of diuretics. She was given intravenous and p.o. potassium and has potassium at home from chronic use that she can continue as needed. The patient was given full instructions as far as liquid diet for the next 7 days and she is to follow up with the bariatric surgery service in 9 days for further dietary instruction. NICOLE VENTURA M.D. [id number]
--- NOTE | 2019-10-11 17:59 | PATH ---
Surgical Pathology Report Patient Name: REFUGIO SMITH Med. Rec. #: [id number] /Age/Gender: 1975 (Age: 44) / F Account: [id number] Location: [facility] Taken: 10/08/2019 Received: 10/08/2019 Reported: 10/11/2019 Physicians: Tristan Dodd M.D. Specimen(s) Received A: GREATER CURVATURE STOMACH B: LIVER BIOPSY C: ABDOMINAL KELOID Clinical History Morbid obesity Final Diagnosis A. GREATER CURVATURE STOMACH, LAPAROSCOPIC VERTICAL SLEEVE GASTRECTOMY: SEGMENT OF STOMACH SHOWING CHRONIC GASTRITIS. IMMUNOSTAINING IS NEGATIVE FOR H. PYLORI ORGANISMS. NEGATIVE FOR MALIGNANCY. B. LIVER, BIOPSY: LIVER TISSUE WITH MILD STEATOSIS (10%), FOCAL. NO HISTOLOGIC EVIDENCE OF HEPATITIS. NO DEFINITIVE INCREASE IN FIBROSIS (TRICHROME STAIN) OR IRON (IRON STAIN) DEPOSITION. Comment: The evaluation of liver is limited due to the suboptimal material (subcapsular liver tissue) with thermal artifact. Correlation with other clinical data and radiology image findings is suggested. C. ABDOMINAL KELOID, EXCISION: PORTIONS OF SKIN AND GRANULATION TISSUE SHOWING ACANTHOSIS, MARKED ACUTE AND CHRONIC INFLAMMATION, AND FOCAL FIBROSIS IN THE DERMIS. Electronically Signed Michael Lagos M.D. Gross Description A. Received in formalin, labeled "greater curvature of stomach," is a 72 gram, 22.0 x 2.0 x 2.0 cm. portion of stomach with a stapled margin of resection. The serosa is ragland-beck[place] with minimal attached fat. The mucosa is ragland-pink with normal folds. No mucosal masses are identified. Clinical Transplant Coordinator sections are submitted in one cassette. B. Received in formalin labeled "liver biopsy," is a 2.0 x 0.8 x 0.3 cm ragland, irregular portion of soft tissue, consistent with a liver biopsy. The specimen is submitted in toto in one cassette. C. Received in formalin labeled "abdominal keloid," is a 1.5 x 0.6 cm ragland, elliptical, unoriented portion of skin excised to depth of 1.0 cm. The epidermal surface displays a focal defect. Sectioning reveals firm fibrous tissue. Separately received within the same container is a 0.9 x 0.7 x 0.2 cm undesignated portion of soft tissue. Clinical Transplant Coordinator sections including the entire separately received portion of soft tissue are submitted in one cassette. 10/10/2019 [facility]10/10/2019
== END 2019-10-09 12:30 | disposition home or self-care (01) | DRG 621 ==
LOC: FM/S 09:42
PROVIDERS: ADMIT Surgery; ATTEND Surgery
PROC: 0FB24ZX Excision of Left Lobe Liver, Percutaneous Endoscopic Approach, Diagnostic (ICD-10-PCS; 2019-10-08)
PROC: 0WBF4ZZ Excision of Abdominal Wall, Percutaneous Endoscopic Approach (ICD-10-PCS; 2019-10-08)
PROC: 0DNW4ZZ Release Peritoneum, Percutaneous Endoscopic Approach (ICD-10-PCS; 2019-10-08)
PROC: 0DB64Z3 Excision of Stomach, Percutaneous Endoscopic Approach, Vertical (ICD-10-PCS; principal; 2019-10-08 12:54)
DX: E66.01 Morbid (severe) obesity due to excess calories (principal); I10 Essential (primary) hypertension; E87.6 Hypokalemia; R73.9 Hyperglycemia, unspecified; R16.0 Hepatomegaly, not elsewhere classified; L91.0 Hypertrophic scar; K66.0 Peritoneal adhesions (postprocedural) (postinfection)
CPT/HCPCS: 36415; 74240-TC-FY; 80053; 83036; 83735; 84132; 84703; 85027; 86850; 86900; 86901; 88304-TC; 88305-TC; 94760